=== PATIENT | female | born 1995 | race Caucasian/White ===

== ENCOUNTER 2018-04-06 13:16 | Inpatient (IN) | payer BC ==
[2018-04-06] MEDS ORDERED: NS 0.9% 1000 ML* 1,000 ML IV ONE (14:01)
[2018-04-06 14:18] LABS: ABS Basophils 0 10^3/ul (0-0.2); ABS Eosinophils 0.1 10^3/ul (0-0.6); ABS Lymphocytes 2.5 10^3/ul (1.0-4.8); ABS Monocytes 0.5 10^3/ul (0-0.8); ABS Nucleated RBC 0 10^3/ul; Eosinophil % 1.3 % (0-6); Hematocrit 40 % (35-47); Hemoglobin 13.4 g/dl (12.0-16.0); Lymphocyte % 24.6 % (25-47); Mean Corpuscular HGB Conc 34 g/dl (31-36); Mean Corpuscular Hemoglobin 29 pg (27-31); Mean Corpuscular Volume 84 fL (80-97); Mean Platelet Volume 7.2 fL (7.4-10.4); Nucleated Red Blood Cells % 0; Platelet Count 397 10^3/ul (150-450); Red Cell Distribution Width 14 % (10.5-15); White Blood Count 10.1 10^3/ul (3.5-10.8)
--- NOTE | 2018-04-06 14:24 | ED ---
Throat Pain/Nasal Congestion - HPI Summary HPI Summary: A 22 y/o female accompanied by her father presents to the ED c/o vision changes. In the ED room, the patient has a pulse of 91 BPM, O2 saturation of 98 % and blood pressure of 103/60. As per triage, "Pt c/o not being able to see out of L eye and dizziness. Pt says she got drunk off of whiskey last night and thought she just had a hangover but her vision is getting worse". According to the patient, she cannot see out of her left eye while her right eye is blurry, but still can see out of it. She noted that she cannot focus as it is difficult and moving her eyes hurts. She stated that she can see light and shadows. As per father, the patient drank heavily on Thursday night and slept basically all day Thursday and Thursday. He stated that Thursday she told him her eyes were hurting so he gave her some eye drops, but it did not help, as they "burned" after applying the eye drops. She stated that she does have a headache, dizziness, trouble ambulating, neck pain and vomited this AM. She denies any head injury, fevers or nausea, but did have nausea (on Thursday) previously. The patient has been like this (with her vision) for the past 3 days (has been unable to see). She thought it was just a hangover still so she put off coming to ED. Patient has no other medical issues and is not taking any medications. She is unsure when her last period was. The patient noted that she has been really upset and stressed over her daughter. Her daughter's father keeps her away from her and it has been an issue. The patient has joint custody, however, she lives with father. She noted that she hasn't seen her daughter in 2 years, but sees her every now and again at her father's house but they end of fighting. She noted that her family issues has nothing to do with her symptoms. - History of Current Complaint Chief Complaint: EDDizziness Time Seen by Provider: 04/06/18 13:45 Hx Obtained From: Patient Onset/Duration: Sudden Onset, Lasting Days, Still Present, Worse Since Associated Signs And Symptoms: Positive: Negative Cough: None - Allergies/Home Medications Allergies/Adverse Reactions: Allergies Allergy/AdvReac Type Severity Reaction Status Date / Time varenicline [From Chantix] Allergy Insomnia Verified 04/06/18 14:09 Home Medications: Home Medications NK [No Home Medications Reported] 04/06/18 [History Confirmed 04/06/18] PMH/Surg Hx/FS Hx/Imm Hx Endocrine/Hematology History: Denies: Hx Anticoagulant Therapy, Hx Diabetes, Hx Anemia, Hx Unexplained Bleeding Cardiovascular History: Denies: Hx Aneurysm, Hx Angina, Hx Angioplasty, Hx Auto Implanted Cardiovert Defib, Hx Cardiac Arrest, Hx Cardiomegaly, Hx Congenital Heart Disease, Hx Congestive Heart Failure, Hx Coronary Artery Disease, Hx Deep Vein Thrombosis, Hx Hypercholesterolemia, Hx Hypotension, Hx Hypertension, Hx Pacemaker/ICD, Hx Peripheral Vascular Disease, Hx Rheumatic Fever, Hx Syncope, Hx Valvular Heart Disease, Other Cardiovascular Problems/Disorders History: Denies: Hx Dialysis, Hx Renal Disease Musculoskeletal History: Reports: Hx Back Problems - tailbone injury 2 years ago from jumping from roof Denies: Hx Arthritis, Hx Bursitis, Hx Congenital Bone Abnormalities, Hx Fibromyalgia, Hx Gout, Hx Orthopedic Injury, Hx Osteoporosis, Hx Scoliosis, Hx Tendonitis, Other Musculoskeletal History Sensory History: Denies: Hx Hearing Aid Psychiatric History: Reports: Hx Anxiety, Hx Attention Deficit Hyperactivity Disorder, Hx Eating Disorder - anorexia, Hx Depression, Hx Post Traumatic Stress Disorder, Hx Inpatient Treatment, Hx Bipolar Disorder, Hx Suicide Attempt , Hx of Violent Episodes Against Others, Hx Substance Abuse - marijuana Denies: Hx Panic Disorder, Hx Community Mental Health Tx, Hx Schizophrenia, Other Psychiatric Issues/Disorders - Surgical History Surgery Procedure, Year, and Place: As per father, the patient has had no prior surgeries. Infectious Disease History: No Infectious Disease History: Denies: Hx Clostridium Difficile, Hx Hepatitis, Hx Human Immunodeficiency Virus (HIV), Hx Shingles, Hx Tuberculosis, Traveled Outside the [place] in Last 30 Days - Family History Known Family History: Positive: Other - anxiety - Social History Alcohol Use: Rare Alcohol Amount: "drank half bottle of crown royal last thursday" Substance Use Type: Reports: Marijuana, Other Substance Use Comment - Amount & Last Used: "bath salts" Smoking Status (MU): Light Every Day Tobacco Smoker Review of Systems Positive: Other - POSITIVE: Trouble ambulating. Negative: Fever Positive: Blurred Vision Positive: Vomiting, Nausea - RESOLVED Positive: Other - POSITIVE: Neck pain Neurological: Other - POSITIVE: Dizziness Positive: Headache All Other Systems Reviewed And Are Negative: Yes Physical Exam - Summary Physical Exam Summary: Appearance: Well appearing, no pain distress Skin: warm, dry, reflects adequate perfusion Head/face: normal. Smile symmetry with decreased movement of eyebrow Eyes: Patient at rest has gazed preference to right, pupils are reactive, able to see light and shadows in left eye, has some ability to focus vision in right eye ENT: mucous membranes moist Neck: supple, non-tender Respiratory: CTA, breath sounds present Cardiovascular: RRR, pulses symmetrical Abdomen: non-tender, soft Bowel Sounds: present Musculoskeletal: normal, strength/ROM intact Neuro: normal, sensory motor intact, A&Ox3 Psych: ambivalent, reports depression, her insight is limited which is part of her ambivalence. GCS: 15 Triage Information Reviewed: Yes Vital Signs On Initial Exam: Initial Vitals Temp Pulse Resp BP Pulse Ox 98.0 F 87 12 106/51 100 04/06/18 13:18 04/06/18 13:18 04/06/18 13:18 04/06/18 13:18 04/06/18 13:18 Vital Signs Reviewed: Yes Procedures - Lumbar Puncture LUMBAR PUNCTURE Procedural Sedation: 1% LIDOCAINE Position: Sitting Aseptic Technique: Lidocaine Anesthesia Used: 1.0% Lido Spinal Needle Used: 22 Gauge Lumbar Puncture Note: LUMBAR PUNCTURE AT L3 AND L4. CLEAR FLUID WAS FOUND WITH 1% LIDOCAINE. SITTING POSITION. 5 CC OF CLEAR FLUID WAS TAKEN. LUMBAR PUNCTURE AT 1645. Diagnostics - Vital Signs Vital Signs Temp Pulse Resp BP Pulse Ox 04/06/18 13:18 98.0 F 87 12 106/51 100 - Laboratory Lab Results: Lab Results 04/06/18 Range/Units 14:10 WBC 10.1 (3.5-10.8) 10^3/ul RBC 4.70 (4.00-5.40) 10^6/ul Hgb 13.4 (12.0-16.0) g/dl Hct 40 (35-47) % MCV 84 (80-97) fL MCH 29 (27-31) pg MCHC 34 (31-36) g/dl RDW 14 (10.5-15) % Plt Count 397 (150-450) 10^3/ul MPV 7.2 L (7.4-10.4) fL Neut % (Auto) 69.0 (38-83) % Lymph % (Auto) 24.6 L (25-47) % [place] % (Auto) 4.6 (0-7) % Eos % (Auto) 1.3 (0-6) % Baso % (Auto) 0.5 (0-2) % Absolute Neuts (auto) 7.0 (1.5-7.7) 10^3/ul Absolute Lymphs (auto) 2.5 (1.0-4.8) 10^3/ul Absolute Monos (auto) 0.5 (0-0.8) 10^3/ul Absolute Eos (auto) 0.1 (0-0.6) 10^3/ul Absolute Basos (auto) 0 (0-0.2) 10^3/ul Absolute Nucleated RBC 0 10^3/ul Nucleated RBC % 0 Result Diagrams: 04/06/18 14:10 04/06/18 14:10 Lab Statement: Any lab studies that have been ordered have been reviewed, and results considered in the medical decision making process. - Radiology CXR Radiology Interpretation Completed By: Radiologist - NO ACTIVE CARDIOPULMONARY DISEASE. ED PHYSICIAN REVIEWED THIS RADIOLOGY REPORT. - CT BRAIN CT CT Interpretation Completed By: Radiologist - NO ACUTE INTRACRANIAL PATHOLOGY. ED PHYSICIAN REVIEWED THIS RADIOLOGY REPORT. - EKG 1401 Cardiac Rate: NL - 80 BPM EKG Rhythm: Sinus Rhythm - [address] Segment: Normal Summary of EKG Findings: NORMAL AXIS AND INTERVALS. EENT Course/Dx - Course Course Of Treatment: Patient presents with gaze deviation to the right, left- sided facial numbness, inability to elevate the left eyebrow and some small asymmetry on the left. Her left body also feels tingly. She has normal speech , muscle strength. There is no fever. The globes are soft. There is visual disturbance most in the left eye. Neurology was consultatively and obtained an MRI which was abnormal. A lumbar puncture was performed by mo. Fluid was clear. Analysis is pending at time of disposition. - Differential Diagnoses Differential Diagnoses: Other - Endocarditis with brain abscess, encephalitis, Lyme disease, MS, patent foramen ovale and TIA/CVA, THERMOMETER TESTER infection of other description, conversion - Diagnoses Provider Diagnoses: Visual disturbance, Facial numbness, Drug abuse - Provider Notifications Discussed Care Of Patient With: Mitul Roca Time Discussed With Above Provider: 14:04 Instructed by Provider To: Other - DR. ROCA RECOMMENDS PATIENT FOR ADMISSION TO HOSPITALIST. DR. DEL REAL ACCEPTS PATIENT FOR ADMISSION AT 1455. - Critical Care Time Critical Care Time: 30-74 min - Critical care time is exclusive of separately billable procedures Discharge - Sign-Out/Discharge Documenting (check all that apply): Patient Departure - ADMIT, Sign-Out Patient - NICOLAS Signing out patient TO: Azucena Del Real Receiving patient FROM: Sukhjinder Torrez - Discharge Plan Condition: Stable Disposition: ADMITTED TO [facility] - Billing Disposition and Condition Condition: STABLE Disposition: Admitted to [facility] - Attestation Statements Document Initiated by Candiibe: Yes Documenting Scribe: Srinivasan Angel Provider For Whom Scribe is Documenting (Include Credential): Sukhjinder Torrez MD Scribe Attestation: Srinivasan Hogan, scribed for Sukhjinder Torrez MD on 04/06/18 at 1933. Scribe Documentation Reviewed: Yes Provider Attestation: The documentation as recorded by the candiibSrinivasan rayo accurately reflects the service I personally performed and the decisions made by , Sukhjinder Torrez MD NIH Scale - NIH Scale Level of Consciousness: Alert/Keenly Responsive Ask Patient the Month and His/Her Age: Both Correct Ask Pt to Open/Close Eyes and Court Monitor/Release Non-Paretic Hand: Both Correctly Best Gaze (Only Horizontal Eye Movement): Partial Gaze Palsy Visual Field Testing: Partial Hemianopia Facial Paresis-Pt to Smile & Close Eyes or Grimace Symmetry: Minor Paralysis Motor Function - Right Arm: No Drift-Holds 10 Seconds Motor Function - Left Arm: No Drift-Holds 10 Seconds Motor Function - Right Leg: No Drift-Holds 10 Seconds Motor Function - Left Leg: No Drift-Holds 10 Seconds Limb Ataxia-Must be out of Proportion to Weakness Present: Absent Sensory (Use Pinprick to Test Arms/Legs/Trunk/Face): Normal Best Language (Describe Picture, Name Items): No Aphasia Dysarthria (Read Several Words): Normal Extinction and Inattention: No Abnormality Total Score: 3
[2018-04-06 14:31] LABS: INR 0.94 (0.77-1.02)
[2018-04-06 15:01] LABS: EGFR Non-African American 131.4 (>60)
[2018-04-06 15:15] LABS: Urine Appearance Cloudy; Urine Blood Negative (Negative); Urine Color Yellow; Urine Ketones Negative (Negative); Urine Protein Negative (Negative); Urine Red Blood Cell 1+(3-5/hpf) (Absent); Urine Specific Gravity 1.011 (1.010-1.030); Urine Urobilinogen Negative (Negative); Urine White Blood Cell 3+(>20/hpf) (Absent)
[2018-04-06] MEDS ORDERED: Gadoteridol* (CONTRAST) 279.3 MG/ML 10 ML IV ONE (15:23)
[2018-04-06] MEDS ORDERED: Ondansetron INJ* 2 MG/ML VIAL IV PRN (16:37)
[2018-04-06] MEDS ORDERED: Lidocaine 1% INJ* 10 MG/ML 30 ML SDV ONE (16:50)
[2018-04-06] MEDS ORDERED: Lidocaine 1% INJ* 10 MG/ML 30 ML SDV INJ ONE (17:03)
[2018-04-06 17:12] LABS: Body Fluid Source Cerebral Spinal
[2018-04-06] MEDS ORDERED: diPHENhydraMINE PO* 25 MG PO PRN (18:46)
[2018-04-06] MEDS ORDERED: Vancomycin(*) 0 MG in NS 0.9% 250 ML* 250 ML IVPB SCH (19:00)
[2018-04-06] MEDS ORDERED: Vancomycin(*) 1,000 MG in NS 0.9% 250 ML* 250 ML IVPB ONE (20:15)
[2018-04-06] MEDS ORDERED: cefTRIAXone(*) 2 GM in NS 0.9% 100 ML* 100 ML IVPB SCH (20:15)
--- NOTE | 2018-04-06 20:50 | CONS ---
NEUROLOGY CONSULTATION: DATE OF CONSULT: 04/06/18 LOCATION: She is in the emergency room. REFERRING PHYSICIAN: Dr. Torrez. CHIEF COMPLAINT: Visual problems, abnormal neurological exam. HISTORY OF PRESENT ILLNESS: Bonita Rasheed is a 22-year-old right-handed woman , who I had evaluated previously back in 2015 when she presented with an abnormal MRI scan and possible brain abscess. She had been hospitalized at [facility] in March of 2016. She was there for 9 or 10 days reportedly in status epilepticus, although no records were available. She was said to have a brain abscess on MRI scan. She presented to our emergency room on 04/15/16. She had been on Lexapro previously and was on Keppra, phenytoin, and dexamethasone, as well as Flagyl when she presented to our hospital. She had imaging of the brain, which revealed some enhancement in the left medial temporal lobe and some punctate areas of restricted diffusion in the left temporal and occipital lobe. She was seen by Dr. Chandler in consultation and ultimately it was felt she probably did not have a brain abscess. She was supposed to follow up with me, but did not show up. She was apparently using bath salts and "got drunk" this past Thursday evening 3 evenings prior to admission. Thursday morning, she woke up with difficulty with her vision. She says it has been that way ever since. She did not seek medical attention until a friend apparently who lives with her came and brought her to the emergency room. In the emergency room, she exhibits a right gaze deviation and says that she has difficulty seeing. PAST MEDICAL HISTORY: Notable for depression and substance abuse. She has had suicidal attempts or gestures. MEDICATIONS: Currently, she does not take any medications. She was on anticonvulsives, but has not taken them for quite some time. REVIEW OF SYSTEMS: She admits to a headache. She denies difficulty walking other than as due to difficulty ambulating. She has not noticed any problems swallowing. She has not had any falls that she is aware of. She is not aware of having any seizures. She has not bitten her tongue. She admits to being under a lot of stress lately. She says she does not know who she can trust. PHYSICAL EXAM: She is a thin 22-year-old woman, who is well hydrated. Head and oral cavity are atraumatic. Temperature is 98.0, blood pressure 106/51, heart rate in the 80s and regular. Respiratory rate is 12 and oxygen saturation is 100% on room air. Neck is supple. Heart is in a regular rhythm without murmurs. There are no cervical bruits. Neurological Exam: She has a forced right gaze deviation. She is able to track to the midline and little bit to the left of midline, but then resumes a right gaze deviation. On confrontation testing, she can see in the right hemifield, but not the left. When asked if she can see my fingers, she can see just my hands, but she is able to finger count in the right hemifield. Facial musculature is notable for decreased contraction of left facial musculature including forehead muscles, eye closure, and lower facial muscles. Right facial musculature seems normal. Funduscopic exam is normal bilaterally. Facial sensation is reported as diminished to pin, temperature, and light touch on the left face as well as the left arm and leg. She reports absent vibratory sense in the left hand entirely, but normal in the right. There is splitting of vibration on the forehead, left being perceived as less than the right. She has normal strength in the lower extremities and upper extremities. There is no drift of any limb. She is able to perform [id number] maneuver fairly normally bilaterally. Reflexes are intact and symmetric in the upper and lower extremities. Plantar responses are flexor bilaterally. She is alert and coherent. Speech is clear. Language is fluent. She says that "something is wrong with me." She otherwise has a somewhat flat affect. DIAGNOSTIC STUDIES/LAB DATA: Notable for a CT scan of the brain interpreted as normal. I reviewed the images and I agree. So far, other laboratory studies available include a CBC, which is within normal limits. Chemistry profile is still pending. INR and PTT are within normal limits. Point of care glucose is 104. Urine toxicology screen is pending. IMPRESSION AND PLAN: Impression is that of multifocal neurological deficits. This in the setting of a patient who reportedly had status epilepticus and did have an abnormal MRI scan at least the one was done here in 2016 and reportedly one down in [place], [place] prior to that. I reviewed the images of her old MRI scan and there was some uptake in the left medial temporal lobe and some other areas of restricted diffusion. I would like to get an EEG and also an MRI scan of her brain. I asked her about stress and she said she is under a lot. Asked her if there was anything particularly that went on prior to this episode and she did not offer any specifics. I think we should probably have Psychiatry evaluate her as well, but meanwhile, I will continue to workup for a primary neurological process. I will continue to follow her along. [id number]/[facility] #: [id number] RACHELLE
[2018-04-06] MEDS ORDERED: methylPREDNISolone SOD SUCC* 1,000 MG in NS 0.9% 1000 ML* 1,000 ML IVPB ONE (21:00)
[2018-04-06] MEDS: NS 0.9% 1000 ML* 1,000 ML IV SCH (21:14)
--- NOTE | 2018-04-06 21:26 | HP ---
CC: Dr. Chandler; Dr. Davis * HISTORY AND PHYSICAL: DATE OF ADMISSION: 04/06/18 PRIMARY CARE PROVIDER: None. ATTENDING PHYSICIAN WHILE IN THE HOSPITAL: Azucena Aldana MD* (report dictated by Giancarlo Leija NP). CHIEF COMPLAINT: 1. Vision loss. 2. Dizziness. HISTORY OF PRESENT ILLNESS: Ms. Rasheed is a 22-year-old female patient, who carries a history of depression, anxiety, polysubstance abuse, history of borderline personality, suicidal ideation, history of seizure in 2016 in the setting of possible cerebritis versus brain abscess. She comes into our ER today, says that over the weekend on Thursday and into Thursday, she was using bath salts. She denies them being intravenous used, but she did state that she was using bath salts and she was drinking heavily. She said that she woke up Thursday and she noted that her vision was off. She noted that she could not see with the exception she could only see out of the right upper quadrant from her eye. She denied having any recent fevers, chills. No weight loss. No reports of seizures were reported, although again she was not near family. She was concerned because the left side of her face started getting numb, it was not getting any better despite the fact that she felt like in her words that she was hung over. She denied any neck pain. There have been no reports of confusion. There have been no reports of chest pain or shortness of breath. No abdominal pain. She had 1 episode of vomiting on Thursday morning. She says she did not inject the bath salts, but she did inhale and snort them. She came into the ED today because of the trouble with vision and the left-sided facial droop and because of these findings, we were asked to evaluate for admission. PAST MEDICAL HISTORY: Significant for: 1. Depression. 2. Anxiety. 3. Polysubstance abuse in the past. 4. Borderline personality disorder. 5. History of suicidal ideation. 6. Seizures. 7. Question of brain abscess versus cerebritis in the past. PAST SURGICAL HISTORY: Denied. HOME MEDICATIONS: Denied. ALLERGIES TO MEDICATIONS: Include EFFEXOR. FAMILY HISTORY: She says her mother is healthy, she has RSD. She does not know her father's history. SOCIAL HISTORY: She does not smoke. She does drink alcohol, again occasionally. She said she binge drink over the weekend, but prior to this she has not drink in several years. She does admit to using bath salts over the weekend and does state that she had a history of IV drug use. Surrogate decision maker is her stepfather, Colton. REVIEW OF SYSTEMS: There is no documented fever. She denied having any significant weight change. There is no double vision, but she admits to having loss of vision and blurry vision. She denies having any shortness of breath. There is no abdominal pain. There was no nausea, no vomiting. No dysuria, no frequency. No seizure. There was no loss of consciousness. No pruritus and no skin ulcerations reported. Review of 14 systems completed, all others negative. PHYSICAL EXAMINATION GENERAL: At this time, Ms. Rasheed is a 22-year-old female patient. She is sitting in the ED stretcher. She does not appear to be in any acute distress. She does appear to be well nourished and well developed. VITAL SIGNS: Blood pressure 105/65, pulse 86, respirations 20, O2 sat 100%, temperature 98.0. HEENT: Head: Atraumatic and normocephalic. Eyes: She had a deviated gaze to the left. Pupils were reactive to light. Throat: Oral mucosa appears to be dry. No oropharyngeal erythema. NECK: Supple. LUNGS: Clear to auscultation bilaterally. There were no wheezes, rales, or rhonchi. HEART: Sounds S1, S2. She had a regular rate and rhythm. There were no murmurs, rubs, or gallops heard. ABDOMEN: Soft. It was flat. It was nontender. The bowel sounds were present. EXTREMITIES: Pulses were 2+ throughout. She is moving all 4 extremities with 5 /5 strength. NEUROLOGICAL: She is awake, alert. She is oriented x3. Speech was clear. She does have facial drooping and numbness to the left side. She has loss of vision in the left eye and there is loss of vision in the right eye with the exception of the right upper quadrant she can see. Vision is blurred. She again is unable to do [id number]. She can do [id number], intact bilaterally. She has some ataxia of the left limb. Her ct scan technician were equal and her tongue was midline. No other gross focal deficits. SKIN: Intact. DIAGNOSTIC STUDIES/LAB DATA: WBC 10.1, RBC of 4.70, hemoglobin of 13.4, hematocrit of 40, platelet count of 397. INR of 0.94, PTT of 33.3. Her sodium was 140, potassium 3.9, chloride of 106, bicarb 30, BUN 9, creatinine of 0.57, glucose 98, lactic 0.9, calcium 9.1. Total bili 0.4, AST 11, ALT 12, alk phos 116. Troponin 0. CRP pending. Albumin 3.6. Urine showed 3+ leukocyte esterase, 3+ wbc's, 1+ rbc's. Toxicology was positive for cannabis. Serology was negative for HIV. She had a brain CT obtained today, which showed no acute intracranial pathology. She had a chest x-ray obtained today, which showed no active cardiopulmonary disease. She had an EKG obtained today, which showed normal sinus rhythm, rate of 80 with a normal axis. No ST elevations or T-wave inversions. No previous for comparison. Brain MRI with and without contrast today showed impression: There are enhancing lesions in the left posterior dhaval and right temporal lobe that are new compared to the MRI from the 2015. The areas of abnormality noted on the previous examination are no longer evident. There is no associated restricted diffusion to suggest acute infarct. These are of unclear etiology, but presumably area of similar process to 04/14/16 pathology. The differential includes multifocal neoplasm versus multifocal infection including atypical infection. No findings to suggest abscess. Last time she was here, she had a LESLI which did show a PFO. Her EF was 50% to 55%. No vegetations were seen then. ld medical records were reviewed. ASSESSMENT AND PLAN: Ms. Rasheed is a 22-year-old female patient coming into the ED today with complaints of again loss of vision, deviated gaze, and numbness to her left face and also left leg weakness. On evaluation today, had an MRI and it was noted that she had 2 enhancing brain lesions of unclear etiology. She will be admitted under inpatient status for: 1. Brain lesion. At this point, I did touch base with Dr. Davis and Dr. Chandler. It is not felt to be an abscess. We are holding off on steroids per recommendations of Neurology, holding off on antibiotics until we get cultures. I am sending off an ANCA panel, JANEE, CRP, ESR. HIV again was negative. We will get blood cultures. I have ordered a LESLI as well to look for any vegetations and this could certainly be possibly infection. I am holding on antibiotics unless she spikes a fever, then certainly I will put her on broad- spectrum antibiotics. Dr. Chandler agreed with this approach. We will again panculture her. We are getting a spinal tap, which I have sent off for cell count and Gram stain along with HSV and Cryptococcus. Sed rate and CRP are pending. We will get neuro checks. These lesions could be secondary to seizure , although the dhaval lesion is atypical with this. We will go ahead and get an EEG, place her on seizure precautions. Also, we will get a nursing dysphagia screening. If she passes, she can eat. She will be n.p.o. after midnight for the LESLI and I have ordered PT evaluation. 2. History of anxiety, depression. Currently stable. We will continue with supportive care. If those become issues, we certainly will get Psychiatry involved. 3. Polysubstance abuse. Again, I will place a social work consult as she did use bath salts this weekend, although she adamantly denies IV drug use. 4. Borderline personality disorder. Again, she appears to be stable. She has been lost to follow up. She will need to establish with a PCP. We will monitor. 5. History of seizures. We will place her on seizure precautions. I am holding on giving her antiepileptics. If she does have an active seizure or the EEG is abnormal, certainly we will start her on medications for this, but again I will wait for Neurology input. 6. DVT prophylaxis: I will place her on SCDs. 7. Code status: Full code. TIME SPENT: Time spent on the admission was 60 minutes, greater than half of the time was spent [id number] with the patient obtaining my history and physical, other half of the time was spent going over the plan of care with the patient and implementing plan of care. I did discuss the plan of care with my attending, Dr. Aldana; she is in agreement. GIANCARLO LEIJA, JAEL [id number]/[facility] #: [id number] RACHELLE
[2018-04-06] MEDS ORDERED: Vancomycin per Pharmacy* NOTE FOLLOW UP PRN (21:40)
[2018-04-06] MEDS: Acetaminophen TAB* 325 MG PO PRN (21:48)
--- NOTE | 2018-04-06 23:34 | CONS ---
CONSULTATION REPORT: DATE OF CONSULT: 04/06/18. REQUESTING PHYSICIAN: Dr. Davis. CONSULTING SERVICE: Infectious Disease. REASON FOR CONSULT: Vision loss, brain lesion. Loss of vision acutely in the setting of headache, loss of appetite after smoking bath salts this weekend. MRI of the brain shows enhancing lesions, left dhaval and right temporal lobe new compared to 2016. At that time she had an abnormality in the temporal lobe. She had had no particular follow up for and it has resolved. In the interim, she has been okay. She has some oral ulcerations which she states comes on when she smokes bath salts. No other focal findings. INFECTIOUS DIFFERENTIAL DIAGNOSIS: Toxoplasmosis or cryptococcoma, though both seem less likely without an immunocompromised state and HIV negative a couple of years ago. They are not felt to be typical for brain abscess based on the imaging. She does not have any strong systemic symptoms to suggest a brain abscess either. Fungal organisms may be more indolent, but again would be expected only in immunocompromised state which she does not have. Autoimmune etiology in consideration, she does have oral ulceration but states she has had autoimmune workup pending as well as for multiple sclerosis. RECOMMENDATIONS: We will hold on antibiotics. She has had the lumbar puncture the results of which are pending. We will add toxoplasma serum antibody and the cryptococcus CSF antigen. Routine cultures are included, an HIV test is pending. Given her vision loss and low pretest probability for infectious process, I think there is not a contraindication to corticosteroids if needed. HISTORY OF PRESENT ILLNESS: This is a 22-year-old woman who had the onset of vision loss over the weekend except for when she looks at the corner of her right eye, she can see. She has had weakness and decreased sensation in the left arm and face, along with headache, occasional chills, no fever. Her appetite has been off. She came to the emergency room today, had the MRI with the results as above. She has been seen by Dr. Davis, had the lumbar puncture , results are pending. She has had no fever here. Her CRP is normal. In the interim since her admission here in 2016 with what looks like cerebritis, but then resolved on its own without any particular intervention. She has been intact neurologically expect for numbness and tingling in her finger tips which comes and goes. She does not have any neck pain. She smokes bath salts over the weekend which usually causes oral ulcerations for her and did have a small bump show up on her left wrist, which she cannot see now but does not bother her. She probably had a spider bite. For her workup in 2016, she had an HIV test which was negative. She had transaminitis, hepatitis B and C were negative. She had been admitted to [facility] initially. At that time, had an extensive workup which was unrevealing. PAST MEDICAL HISTORY: Brain lesion in 2016. No surgeries. ALLERGIES: CHANTIX. MEDICATIONS AT HOME: 1. Tylenol. 2. Zofran. SOCIAL HISTORY: She lives with her family. She does on occasion smoke bath salts. No injection drugs. No trips outside the area. Has had cat exposure over the years. FAMILY HISTORY: No autoimmune disorders. No recurrent infections. REVIEW OF SYSTEMS: All negative except as noted above to a 14-point review of systems, expect for noted in the history of present illness. PHYSICAL EXAM: Vital Signs: Temperature 37, heart rate 80, respiratory rate 20 , blood pressure 105/65, oxygen saturation 100% on room air. In general, she is awake, not in distress. Neurologic: She is oriented x3. Follows all commands. Answers all questions. Cannot see from medial right eye. Decreased sensation to light touch in the left upper extremity. HEENT: There is no conjunctival hemorrhage. Oropharynx without lesions. There is no thrush, or oral hairy leukoplakia. Neck is supple without mass. Lymph Nodes: There is no cervical, supraclavicular, inguinal, axillary, or epitrochlear lymphadenopathy. Heart is regular rate and rhythm without murmurs, rubs, or gallops. Lungs are clear to auscultation bilaterally. Abdomen: Soft, nontender, nondistended. There are bowel sounds present. Skin: There is no rash or splinter hemorrhage. Musculoskeletal: There is no spine tenderness to palpation. LABORATORY DATA: White blood cell count 10, hemoglobin 13, platelets 397. Creatinine 0.5. CRP 3. HCG 0. Urinalysis, leukocyte esterase. Toxicology screen shows cannabinoids. HIV antibodies negative. Please see impressions and recommendations as outlined above, which I have discussed with Giancarlo Leija NP and Dr. Davis. [id number]/[facility] #: [id number] [facility] HOSPITALDemarcus
--- NOTE | 2018-04-06 23:42 | CONS ---
NEUROLOGY CONSULTATION: LOCATION: She is in room 433. CHIEF COMPLAINT: Visual changes. ADDENDUM: Bonita is now on the regular medical floor. I have reviewed a number of laboratory studies that she has had. Her spinal fluid is notable for mildly elevated protein at 50 with a normal glucose. She has 98 white blood cells per cubic millimeter with differential being 32% neutrophils, 48% lymphocytes, 20% monocytes. Other laboratory studies which have since returned include a normal CRP at 3.79, sedimentation rate is still pending. Bonita remains afebrile. Dr. Chandler has seen her in consultation. I suspect Bonita has multiple sclerosis. Periventricular lesions, particularly around the fourth ventricle, are highly correlated with MS. She has more white blood cells in her spinal fluid than I would typically expect, and she has a fairly intense inflammatory response particularly in the periventricular region that might account for it. I think it is reasonable to treat her with steroids as well as antibiotic coverage. I have discussed this with Giancarlo Leija. Recommend starting Solu-Medrol at 1000 mg given over an hour tonight. I discussed my concerns with Bonita. I explained the steroids are potent anti-inflammatory medicines but can cause anxiety and insomnia. Recommended Giancarlo Leija that a sleeping medicine be made available. I will reevaluate her tomorrow and hopefully some of the other spinal fluid studies and blood studies will be back. If she shows improvement and there is no other evidence to suggest infection, then we will continue intravenous steroids for at least a few days. I should note that she was treated with dexamethasone with her previous attack in 2013 and she did get better and her lesions resolved. [id number]/[facility] #: [id number] RACHELLE
[2018-04-07] MEDS ORDERED: Nicotine GUM* 2 MG PO PRN (01:00)
[2018-04-07] MEDS: Nicotine PATCH 14 MG/24 HR* PATCH TRANSDERM SCH ×2 (01:11→12:35)
[2018-04-07] MEDS ORDERED: Vancomycin(*) 1,000 MG in NS 0.9% 250 ML* 250 ML IVPB SCH (03:00)
--- NOTE | 2018-04-07 04:36 | EEG ---
ELECTROENCEPHALOGRAPHY: DATE OF STUDY: 04/06/18 - ROOM #433 REFERRING PHYSICIAN: Dr. Davis. She is in the emergency room, to be admitted. CLINICAL PROBLEM: Double vision and gaze deviation. History 3 years ago of status epilepticus. The patient is currently not on any medications. REPORT: This 16-channel EEG is remarkable for background rhythms consisting of a posterior alpha rhythm at about 10 to 10.5 cycles per second, which is symmetric. Low voltage beta rhythms are seen diffusely otherwise. Activation procedures are not attempted. The patient does not appear to drowse or sleep during the recording. There are no clinical events. There are no focal, lateralized, or epileptiform abnormalities. CLINICAL IMPRESSION: Normal awake EEG. [id number]/[facility] #: [id number] [facility]
[2018-04-07] MEDS: NS 0.9% 1000 ML* 1,000 ML IV SCH (05:43)
[2018-04-07 05:46] LABS: ABS Basophils 0 10^3/ul (0-0.2); ABS Eosinophils 0 10^3/ul (0-0.6); ABS Lymphocytes 0.6 10^3/ul (1.0-4.8); ABS Monocytes 0 10^3/ul (0-0.8); ABS Nucleated RBC 0 10^3/ul; Eosinophil % 0 % (0-6); Hematocrit 37 % (35-47); Hemoglobin 12.4 g/dl (12.0-16.0); Mean Corpuscular HGB Conc 33 g/dl (31-36); Mean Corpuscular Hemoglobin 28 pg (27-31); Mean Corpuscular Volume 84 fL (80-97); Mean Platelet Volume 7.2 fL (7.4-10.4); Nucleated Red Blood Cells % 0; Platelet Count 345 10^3/ul (150-450); Red Blood Count 4.44 10^6/ul (4.00-5.40); Red Cell Distribution Width 15 % (10.5-15); White Blood Count 10.6 10^3/ul (3.5-10.8)
[2018-04-07 05:52] LABS: INR 0.99 (0.77-1.02)
[2018-04-07] MEDS ORDERED: methylPREDNISolone SOD SUCC* 1000 MG ML VIAL IVPB SCH (09:00)
[2018-04-07] MEDS ORDERED: methylPREDNISolone SOD SUCC* 1,000 MG in NS 0.9% 250 ML* 250 ML IVPB SCH (10:00)
[2018-04-07] MEDS ORDERED: Gadoteridol* (CONTRAST) 279.3 MG/ML 10 ML IV ONE (10:49)
[2018-04-07] MEDS: Acetaminophen TAB* 325 MG PO PRN (12:23)
--- NOTE | 2018-04-07 13:10 | TRS ---
CC: Rodrigue Harden NP* DATE OF ADMISSION: 04/06/2018. DATE OF TRANSFER TO [facility]: 04/07/2018. PRIMARY CARE PROVIDER: Rodrigue Harden NP. 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 SECONDARY DIAGNOSES: 1. Polysubstance abuse. 2. Depression/anxiety. 3. Borderline personality disorder. 4. Seizures. DISCHARGE MEDICATIONS: 1. Normal saline 125 ml/hour. 2. Tylenol 650 mg p.o. q.4 hours prn pain. 3. Benadryl 25 mg p.o. at bedtime prn insomnia. 4. Methylprednisolone 1 gm IV daily. 5. Nicotine patch 14 mg topically daily. 6. Nicotine gum 2 mg p.o. q.3 hours prn craving. 7. Zofran 4 mg IV q.6 hours prn nausea. HOSPITAL COURSE: Ms. Rasheed is a 22-year-old female who presented to the emergency room on 04/06/2018 with complaints of vision changes. Of note, in 2015 the patient had an episode of an abnormal MRI scan with concern for possible brain abscess. The patient had been hospitalized in March 2016 in reportedly status epilepticus, though records were not available to confirm this. She was seen by Dr. Davis as well as Dr. Chandler at that time and it was felt she ultimately did not have a brain abscess. She was supposed to follow-up with Dr. Davis; however, she did not show up. The patient reportedly was using bath salts and became intoxicated on Thursday evening, which was three evenings prior to admission. On Thursday morning, she woke up with difficulty with her vision. She ultimately presented to the emergency room on 04/06/2018. At the time of her presentation to the emergency room, Dr. Davis was consulted. He noted a right gaze deviation as well as a left hemianopsia. She was also found to have a left facial droop. Her funduscopic exam felt to be normal bilaterally. Facial sensation was diminished to pin, temperature, and light touch on the left face, as well as the left arm and leg. She reported absent vibratory sense in the left hand entirely, but normal in the right. The forehead had perceived decreased vibratory sense on the left compared to the right. Dr. Davis at that time recommended EEG and MRI. The MRI of the brain was performed and revealed enhancing lesions of the left posterior dhaval and right temporal lobe that are new compared to the MRI from . The areas of abnormality on the prior exam are no longer present. The etiology of these lesions is felt to be unclear, but the differential is felt to include multifocal neoplasm versus multifocal infection, including atypical infection. There were no findings to suggest abscess. Lumbar puncture was then performed. The lumbar puncture revealed clear fluid with 98 white blood cells, 6 RBC, and a predominance of lymphocytes. CSF glucose was normal at 49 and CSF total protein was slightly elevated at 50. The patient was also seen in consultation by Dr. Chandler who recommended holding off on antibiotic therapy for the time being as there is no clear evidence to support infection as the cause of her symptoms. He did state that if steroids were felt to be warranted, there would be no contraindication to the patient receiving those. Dr. Davis again evaluated the patient and thought that multiple sclerosis would be a possibility; however, after further research, he questioned whether or not the patient may have neuromyelitis optica. This is based on the patient' s symptoms predominantly involving the area around the fourth ventricle leading to visual disturbances. Treatment for neuromyelitis optica is IV steroids and possibly plasma exchange. We do not have plasma exchange capabilities at [facility] and therefore Dr. Davis spoke with Dr. Do at [facility] who kindly accepted the patient in transfer. The patient will be transferred to [facility] today, 04/07/2018. On the day of transfer, the patient is awake, alert and oriented. She has a forced right gaze deviation. She is able to get the eyes to almost midline. She has a left hemianopsia. She also has a noticeable left facial droop. The patient has a normal cardiac exam with normal S1, S2 and a regular rate and rhythm. Her lungs are clear bilaterally. Her abdomen is soft, nontender, nondistended. The patient was able to move all four extremities symmetrically. FOLLOW-UP CONCERNS: The patient is being transferred to [facility] today, 04/07/2018. ACTIVITY LEVEL: As tolerated. DIET: Regular. CONDITION ON DISCHARGE: Guarded. Thirty-five minutes were spent transferring this patient. [id number]/[facility] #: [id number] [facility]
[2018-04-07] MEDS ORDERED: Vancomycin Trough Check NOTE FOLLOW UP ONE (15:00)
[2018-04-07 15:49] VITALS: BP 112/71
--- NOTE | 2018-04-07 17:56 | PN ---
NEUROLOGY FOLLOWUP NOTE: DATE OF FOLLOWUP: 04/07/18 HOSPITALIST: Dr. Hernandez. LOCATION: She is an inpatient in [facility]. CHIEF COMPLAINT: Visual disturbances, numbness. INTERVAL HISTORY: Since yesterday, Bonita feels her vision is improved. She can see more detail. She can see better out of the right eye than the left. She still feels like her entire left side is numb. She notes the left side of her face remains weak. MEDICATIONS: Medications are reviewed and she is on: 1. Solu-Medrol 1000 mg, which she received last night. 2. Vancomycin. 3. Ceftriaxone. 4. She has Zofran 4 mg IV q. 6 hours as needed for nausea. 5. Diphenhydramine 25 mg at bedtime to help with sleep. 6. She is on nicotine patch. PHYSICAL EXAMINATION: On exam, she is well hydrated. Temperature 97.9, blood pressure 112/58, heart rate in the 70s and regular. Respiratory rate is 16 and oxygen saturation is 100% on room air. On neurologic exam, pupils are about 3.5 mm and react weakly to light to about 3 mm. I cannot see a clear afferent pupillary defect. She continues with a right gaze deviation. She can bring her eyes to about the midline. She continues with a peripheral pattern left facial weakness. Speech has a mild buccal dysarthria. She has normal strength in her limbs. She has diminished sensation in the left face and the right arm and leg. She is completely alert and coherent. Her memory is intact and language is fluent. LABORATORY DATA: New laboratory data includes a HIV antibody study which is negative. Toxicology screen positive for cannabinoids. CSF Gram Stain is unremarkable. 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 She has an antiinflammatory spinal fluid over what would be expected for multiple sclerosis , a relapsing, probable demyelinating disease and significant visual deficits with brainstem syndrome. Her vision is worse in her left eye and there is pain with movement suggesting optic neuritis. We will continue with IV Solu-Medrol 1000 mg per day. I wrote orders for an MRI of the cervical spine and anti-aquaporin 4 antibodies. We will obtain visually evoked potentials. I think she needs to be at a center where plasma exchange is available, and so I will make a call to the [facility] and discuss the case with the neuroimmunology group there. If she does not show significant improvement on steroids, then I may institute intravenous immunoglobulin, but preferably I will refer her to a center where plasma exchange is available. I have discussed my impression with Dr. Hernandez, who is her hospitalist. [id number]/[facility] #: [id number] RACHELLE
[2018-04-07] MEDS ORDERED: Nicotine Patch Removal NOTE PATCH OFF SCH (21:00)
--- NOTE | 2018-04-09 21:23 | EEG ---
VISUALLY EVOKED POTENTIAL STUDY: DATE OF PROCEDURE: 04/07/18 REFERRING PHYSICIAN: Dr. Davis. LOCATION: Inpatient. CLINICAL HISTORY: Visual loss for about 48 hours prior to this study. The patient has multifocal ab normalities on MR imaging. Rule out optic neuropathy. REPORT: Visually evoked potential responses were obtained with monocular stimulation. A mid frontal reference electrode was utilized. Waveforms on the left were inconsistent and there was a possible P100 but from my perspective it is unreliable, therefore will not be further commented on. There is a reliable P100 on the right. Tabular results: P100 on the right at left occipital to mid frontal reference is 98.4; on the right, mid occipital to mid frontal is 98.0; on the right, right occipital to mid frontal is 97.7. INTERPRETATION: Normal visually evoked potential for the right eye stimulation, no reliable response to stimulation on the left. This would imply optic neuropathy on the left or extremely poor visual acuity. [id number]/[facility] #: [id number]
== END 2018-04-07 17:10 | disposition short-term general hospital (02) | DRG 43 ==
LOC: ED 13:16 → MEDTELE 16:26
PROVIDERS: ADMIT Internal Medicine; ATTEND Hospitalist
PROC: 009U3ZX Drainage of Spinal Canal, Percutaneous Approach, Diagnostic (ICD-10-PCS; principal; 2018-04-06)
PROC: 4A10X4Z Monitoring of Central Nervous Electrical Activity, External Approach (ICD-10-PCS; 2018-04-06)
DX: G36.0 Neuromyelitis optica [Devic] (principal); F50.00 Anorexia nervosa, unspecified; F41.9 Anxiety disorder, unspecified; F90.9 Attention-deficit hyperactivity disorder, unspecified type; F32.9 Major depressive disorder, single episode, unspecified; F43.10 Post-traumatic stress disorder, unspecified; F17.200 Nicotine dependence, unspecified, uncomplicated; R29.703 NIHSS score 3; R29.810 Facial weakness; F60.3 Borderline personality disorder; R56.9 Unspecified convulsions; F19.10 Other psychoactive substance abuse, uncomplicated; H53.462 Homonymous bilateral field defects, left side; Z88.8 Allergy status to other drugs, medicaments and biological substances; Z72.89 Other problems related to lifestyle; Z81.8 Family history of other mental and behavioral disorders; Z91.5 Personal history of self-harm
CPT/HCPCS: 36415; 70450; 70553; 71045; 72156; 80048; 80053; 80061; 80202; 80307; 80320; 81003; 81015; 82040; 82042; 82784; 82945; 83516; 83605; 83916; 84157; 84484; 84702; 85025; 85610; 85652; 85730; 86038; 86140; 86255; 86480; 86703; 86777; 86778; 86788; 86789; 87040; 87070; 87077; 87086; 87186; 87205; 87529; 87899; 89051; 93005; 95816; 95930; 99284; A9270-GY; A9579; G0480; J0696; J2930; J3370

== ENCOUNTER 2018-10-20 11:20 | Emergency (ER) | payer BC ==
--- NOTE | 2018-10-20 11:49 | ED ---
Complex/Multi-Sys Presentation - HPI Summary HPI Summary: Patient is a 23 y/o F presenting to ED with complaints of N/V since 0300 this morning. Patient has Hx of MS and reports headache and neck pain that she describes as chronic. She also endorses fever, chills, and abdominal pain onsetting this morning. Hx of seizures and brain lesion are also endorsed. Patient states that she is followed by [facility] neurologist, Josh Hopkins, . Patient states that she is scheduled for Rituximab infusion on 10/22. She states that she had been previously scheduled for a Rituximab infusion , but states that she did not receive it as she had an infection at her left chest area. On triage, pain is rated 6/10, nothing is noted to aggravate/ alleviate Sx. Home medications and allergies are reviewed. - History Of Current Complaint Chief Complaint: EDNauseaVomitDiarrh Time Seen by Provider: 10/20/18 11:32 Hx Obtained From: Patient Onset/Duration: Lasting Hours - onset 10/20/18 this morning 299, Still Present Timing: Constant, Hours - onset 10/20/18 this morning 299 Severity Currently: Moderate Location: Pain At: - head, neck, abdomen Aggravating Factor(s): nothing Alleviating Factor(s): nothing Associated Signs And Symptoms: Positive: Headache, Nausea, Vomiting, Abdominal Pain, Fever, Other - POSITIVE - NECK PAIN, CHILLS - Allergies/Home Medications Allergies/Adverse Reactions: Allergies Allergy/AdvReac Type Severity Reaction Status Date / Time varenicline [From Chantix] Allergy Insomnia Verified 08/06/18 14:45 PMH/Surg Hx/FS Hx/Imm Hx Endocrine/Hematology History: Denies: Hx Anticoagulant Therapy, Hx Diabetes, Hx Anemia, Hx Unexplained Bleeding Cardiovascular History: Denies: Hx Aneurysm, Hx Angina, Hx Angioplasty, Hx Auto Implanted Cardiovert Defib, Hx Cardiac Arrest, Hx Cardiomegaly, Hx Congenital Heart Disease, Hx Congestive Heart Failure, Hx Coronary Artery Disease, Hx Deep Vein Thrombosis, Hx Hypercholesterolemia, Hx Hypotension, Hx Hypertension, Hx Pacemaker/ICD, Hx Peripheral Vascular Disease, Hx Rheumatic Fever, Hx Syncope, Hx Valvular Heart Disease, Other Cardiovascular Problems/Disorders History: Denies: Hx Dialysis, Hx Renal Disease Musculoskeletal History: Reports: Hx Back Problems - tailbone injury 2 years ago from jumping from roof Denies: Hx Arthritis, Hx Bursitis, Hx Congenital Bone Abnormalities, Hx Fibromyalgia, Hx Gout, Hx Orthopedic Injury, Hx Osteoporosis, Hx Scoliosis, Hx Tendonitis, Other Musculoskeletal History Sensory History: Reports: Hx Vision Problem Denies: Hx Contacts or Glasses, Hx Hearing Aid Opthamlomology History: Reports: Hx Vision Problem Denies: Hx Contacts or Glasses Neurological History: Reports: Hx Seizures, Other Neuro Impairments/Disorders - lesions Psychiatric History: Reports: Hx Anxiety, Hx Attention Deficit Hyperactivity Disorder, Hx Eating Disorder - anorexia, Hx Depression, Hx Post Traumatic Stress Disorder, Hx Inpatient Treatment - At [facility] and [facility], Hx Bipolar Disorder, Hx Suicide Attempt, Hx of Violent Episodes Against Others, Hx Substance Abuse, Other Psychiatric Issues/Disorders - Borderline Personality Denies: Hx Panic Disorder, Hx Community Mental Health Tx, Hx Schizophrenia - Surgical History Surgery Procedure, Year, and Place: DENIES Infectious Disease History: No Infectious Disease History: Denies: Hx Clostridium Difficile, Hx Hepatitis, Hx Human Immunodeficiency Virus (HIV), Hx Shingles, Hx Tuberculosis, Traveled Outside the [place] in Last 30 Days - Family History Known Family History: Positive: Other - anxiety - Social History Alcohol Use: Rare Alcohol Amount: "drank half bottle of crown royal last thursday" Substance Use Type: Reports: Marijuana Substance Use Comment - Amount & Last Used: "bath salts" Smoking Status (MU): Light Every Day Tobacco Smoker Type: Cigarettes Amount Used/How Often: 1/2 pack a day Review of Systems Positive: Fever, Chills Positive: Abdominal Pain, Vomiting, Nausea Musculoskeletal: Other - POSITIVE - NECK PAIN Positive: Headache All Other Systems Reviewed And Are Negative: Yes Physical Exam - Summary Physical Exam Summary: GENERAL: Patient is a well-developed and nourished female who is lying comfortable in the stretcher. Patient is not in any acute respiratory distress. HEAD AND FACE: Normocephalic EYES: PERRLA, EOMI x 2. EARS: Hearing grossly intact. MOUTH: Oropharynx within normal limits. NECK: Supple, trachea is midline, no adenopathy, no JVD, no carotid bruit. CHEST: Symmetric, no tenderness at palpation LUNGS: Clear to auscultation bilaterally. No wheezing or crackles. CVS: Regular rate and rhythm, S1 and S2 present, no murmurs or gallops appreciated. ABDOMEN: Soft, non-tender. Bowel sounds are normal. No abnormal abdominal pulsations. EXTREMITIES: Full ROM in all major joints, no edema, no cyanosis or clubbing. NEURO: Alert and oriented x 3. No acute neurological deficits. Speech is normal and follows commands. No meningeal signs. SKIN: Dry and warm Triage Information Reviewed: Yes Vital Signs On Initial Exam: Initial Vitals Temp Pulse Resp BP Pulse Ox 97.8 F 86 18 117/77 96 10/20/18 11:24 10/20/18 11:24 10/20/18 11:24 10/20/18 11:24 10/20/18 11:24 Vital Signs Reviewed: Yes Diagnostics - Vital Signs Vital Signs Temp Pulse Resp BP Pulse Ox 10/20/18 11:24 97.8 F 86 18 117/77 96 - Laboratory Result Diagrams: 10/20/18 12:07 10/20/18 12:07 Lab Statement: Any lab studies that have been ordered have been reviewed, and results considered in the medical decision making process. - Radiology CERVICAL SPINE MRI Radiology Interpretation Completed By: Radiologist Summary of Radiographic Findings: CERVICAL SPINE MRI IMPRESSION: #. No evidence for demyelinating lesions of the cervical spinal cord. #. No etiology for neck pain evident. THIS REPORT WAS REVIEWED BY DR. LEIJA BRAIN MRI Radiology Interpretation Completed By: Radiologist Summary of Radiographic Findings: BRAIN MRI IMPRESSION: #. Minimal T2 FLAIR signal abnormality at the LEFT frontal lobe periventricular white. matter and genu of the corpus callosum without change or associated enhancement to. indicate an acute demyelination. No new cerebral lesions evident. THIS REPORT WAS REVIEWED BY DR. LEIJA. Re-Evaluation - Re-Evaluation First Eval Re-Evaluation Time: 18:19 Change: Improved Comment: Patient reports improvment in Sx. Results of labs and tests were discussed, patient is agreeable with discharge to home. Complex Multi-Symp Course/Dx Course Of Treatment: Patient is a 23 y/o F presenting to ED with complaints of N /V since 0300 this morning. Patient has Hx of MS and reports headache and neck pain that she describes as chronic. She also endorses fever, chills, and abdominal pain onsetting this morning. Hx of seizures and brain lesion are also endorsed. Patient states that she is followed by [facility] neurologist, Josh Hopkins, . Patient states that she is scheduled for Rituximab infusion on 10/22/18. She states that she had been previously scheduled for a Rituximab infusion, but states that she did not receive it as she had an infection at her left chest area. No meningeal signs on physical exam. Labs showed RBC 5.02, absolute neuts 7.9, INR 1.14, APTT 39.4, chloride 100, glucose 105, first lactic acid 0.5, second was 0.4. Total bilirubin 1.10, AST 11, alk phos 107, trop 0. Beta HCG < 0.60. UA showed 1+ ketones, 2+ blood, present squamous epith cells, trace WBC. 1350 - Patient's case was discussed with Dr. Ashley, Dr. Ashley asks for brain and cervical spine MRI of patient. During ED course, patient received fluids, Zofran 4 mg IV x2, morphine 4 mg IV. CERVICAL SPINE MRI IMPRESSION: #. No evidence for demyelinating lesions of the cervical spinal cord. #. No etiology for neck pain evident. BRAIN MRI IMPRESSION: #. Minimal T2 FLAIR signal abnormality at the LEFT frontal lobe periventricular white. matter and genu of the corpus callosum without change or associated enhancement to. indicate an acute demyelination. No new cerebral lesions evident. 1820 - Results of MRI were discussed with Dr. Ashley, Dr. Ashley states that patient can be discharged to home. Discussed results with patient, and the patient reports feeling better. The patient is hemodynamically stable and safe for discharge. Strict return precautions given and the patient will otherwise follow up with PCP and neurologist. - Diagnoses Provider Diagnoses: Headache, Nausea and vomiting - Physician Notifications Discussed Care Of Patient With: Rock Ashley Time Discussed With Above Provider: 13:05 Instructed by Provider To: Other - 1350 - Patient's case was discussed with Dr. Ashley, Dr. Ashley asks for brain and cervical spine MRI of patient. 182 - Results of MRI were discussed with Dr. Ashley, Dr. Ashley states that patient can be discharged to home. Discharge - Sign-Out/Discharge Documenting (check all that apply): Patient Departure - discharge Patient Received Moderate/Deep Sedation with Procedure: No - Discharge Plan Condition: Stable Disposition: HOME Prescriptions: Ondansetron ODT TAB* [Zofran 4 MG Odt TAB*] 4 mg PO Q6H PRN #12 tab.odt PRN Reason: Nausea Patient Education Materials: Acute Nausea and Vomiting (ED), General Headache ( ED) Referrals: Rodrigue Harden NP [Primary Care Provider] - 3 Days Rock Ashley MD [Medical Doctor] - 3 Days Additional Instructions: RETURN TO THE EMERGENCY DEPARTMENT FOR ANY CHANGING OR WORSENING SYMPTOMS. FOLLOW UP WITH YOUR PRIMARY CARE PHYSICIAN AND NEUROLOGIST WITHIN THREE DAYS. - Billing Disposition and Condition Condition: STABLE Disposition: Home - Attestation Statements Document Initiated by Scribe: Yes Documenting Scribe: ISAAC MIRAMONTES Provider For Whom [place] is Documenting (Include Credential): JONNY LEIJA MD Scribe Attestation: ISAAC Hogan, scribed for JONNY LEIJA MD on 10/20/18 at 1955. Scribe Documentation Reviewed: Yes Provider Attestation: The documentation as recorded by the ISAAC hood accurately reflects the service I personally performed and the decisions made by me, JONNY LEIJA MD Status of Scribe Document: Viewed
[2018-10-20] MEDS ORDERED: NS 0.9% 1000 ML** 1,000 ML IV ONE (11:51)
[2018-10-20] MEDS ORDERED: Ondansetron INJ* 2 MG/ML VIAL IV ONE ×2 (11:51→15:50)
[2018-10-20 12:15] LABS: ABS Monocytes 0.2 10^3/ul (0-0.8); ABS Neutrophils 7.9 10^3/ul (1.5-7.7); Hematocrit 42 % (35-47); Hemoglobin 13.9 g/dL (12.0-16.0); Lymphocyte % 10.8 %; Mean Corpuscular HGB Conc 33 g/dL (31-36); Mean Corpuscular Hemoglobin 28 pg (27-31); Mean Corpuscular Volume 83 fL (80-97); Mean Platelet Volume 7.4 fL (7.4-10.4); Platelet Count 397 10^3/uL (150-450); Red Blood Count 5.02 10^6 /uL (3.70-4.87); Red Cell Distribution Width 15 % (10.5-15); White Blood Count 9.1 10^3/uL (3.5-10.8)
[2018-10-20 12:34] LABS: ALT 11 U/L (7-52); AST 11 U/L (13-39); Activated Partial Thrombo Time 39.4 seconds (26.0-38.0); Albumin 4.7 g/dL (3.2-5.2); Albumin/Globulin Ratio 1.5 (1-3); Alkaline Phosphatase 107 U/L (34-104); Anion Gap 9 mmol/L (2-11); BUN/Creatinine Ratio 15.7 (8-20); Blood Urea Nitrogen 11 mg/dL (6-24); C Reactive Protein 3.44 mg/L (<8.01); CO2 Carbon Dioxide 27 mmol/L (22-32); Chloride 100 mmol/L (101-111); EGFR African American 124.4 (>60); EGFR Non-African American 102.8 (>60); Globulin 3.1 g/dL (2-4); Glucose 105 mg/dL (70-100); INR 1.14 (0.82-1.09); Potassium 3.6 mmol/L (3.5-5.0); Sodium 136 mmol/L (135-145); Total Protein 7.8 g/dL (6.4-8.9)
[2018-10-20 12:39] LABS: HCG Pregnancy < 0.60 mIU/mL
[2018-10-20 13:40] LABS: Urine Appearance Cloudy; Urine Bacteria Absent (Absent); Urine Bilirubin Negative (Negative); Urine Blood 2+ (Negative); Urine Color Straw; Urine Glucose Negative (Negative); Urine Ketones 1+ (Negative); Urine Nitrite Negative (Negative); Urine Protein Negative (Negative); Urine Red Blood Cell Absent (Absent); Urine Specific Gravity 1.006 (1.010-1.030); Urine Squamous Epithelial Cell Present (Absent); Urine Urobilinogen Negative (Negative); Urine White Blood Cell Trace(0-5/hpf) (Absent)
[2018-10-20] MEDS ORDERED: Morphine 4 MG/ML VIAL (1 ml) 4 MG/ML VIAL IV ONE (15:51)
[2018-10-20] MEDS ORDERED: Gadoteridol* (CONTRAST) 279.3 MG/ML 10 ML IV ONE (16:21)
[2018-10-20 18:58] VITALS: BP 118/64
== END 2018-10-20 18:57 | disposition home or self-care (01) ==
LOC: ED 11:20
DX: R11.2 Nausea with vomiting, unspecified (principal); R51 Headache; F17.210 Nicotine dependence, cigarettes, uncomplicated; G35 Multiple sclerosis
CPT/HCPCS: 36415; 70553; 72156; 80053; 81003; 81015; 83605; 84484; 84702; 85025; 85610; 85730; 86140; 87040; 87086; 96361; 96374; 96375; 96376; 99283; A9579; J2270; J2405

== ENCOUNTER 2018-11-17 13:11 | Emergency (ER) | payer BC ==
[2018-11-17] MEDS ORDERED: Ondansetron INJ* 2 MG/ML VIAL IV ONE (15:52)
[2018-11-17] MEDS ORDERED: NS 0.9% 1000 ML** 1,000 ML IV ONE (15:52)
[2018-11-17] MEDS ORDERED: Ketorolac INJ* 30 MG/ML 1 ML VIAL IV PUSH ONE (15:58)
--- NOTE | 2018-11-17 16:04 | ED ---
Complex/Multi-Sys Presentation - HPI Summary HPI Summary: Patient is a 23-year-old female who presents emergency department for possible reaction to Rituximab infusion received 11/08/18. Patient has history of an abscess. Patient states since her first infusion. She follows with neurologist in [place]. Patient states second day after infusion she started to have myalgias, nausea and a burning sensation to her skin. No associated symptoms of rash, facial swelling or shortness of breath. Patient also notes ongoing neck and head pain. Patient was seen in the ER about one month ago for similar symptoms. Symptoms are moderate in severity. No current modifying factors. - History Of Current Complaint Chief Complaint: EDGeneral Time Seen by Provider: 11/17/18 15:40 Hx Obtained From: Patient - Allergies/Home Medications Allergies/Adverse Reactions: Allergies Allergy/AdvReac Type Severity Reaction Status Date / Time varenicline [From Chantix] Allergy Insomnia Verified 11/17/18 13:16 PMH/Surg Hx/FS Hx/Imm Hx Previously Healthy: Yes Endocrine/Hematology History: Denies: Hx Anticoagulant Therapy, Hx Diabetes, Hx Anemia, Hx Unexplained Bleeding Cardiovascular History: Denies: Hx Aneurysm, Hx Angina, Hx Angioplasty, Hx Auto Implanted Cardiovert Defib, Hx Cardiac Arrest, Hx Cardiomegaly, Hx Congenital Heart Disease, Hx Congestive Heart Failure, Hx Coronary Artery Disease, Hx Deep Vein Thrombosis, Hx Hypercholesterolemia, Hx Hypotension, Hx Hypertension, Hx Pacemaker/ICD, Hx Peripheral Vascular Disease, Hx Rheumatic Fever, Hx Syncope, Hx Valvular Heart Disease, Other Cardiovascular Problems/Disorders History: Denies: Hx Dialysis, Hx Renal Disease Musculoskeletal History: Reports: Hx Back Problems - tailbone injury 2 years ago from jumping from roof Denies: Hx Arthritis, Hx Bursitis, Hx Congenital Bone Abnormalities, Hx Fibromyalgia, Hx Gout, Hx Orthopedic Injury, Hx Osteoporosis, Hx Scoliosis, Hx Tendonitis, Other Musculoskeletal History Sensory History: Reports: Hx Vision Problem Denies: Hx Contacts or Glasses, Hx Hearing Aid Opthamlomology History: Reports: Hx Vision Problem Denies: Hx Contacts or Glasses Neurological History: Reports: Hx Seizures, Other Neuro Impairments/Disorders - lesions Psychiatric History: Reports: Hx Anxiety, Hx Attention Deficit Hyperactivity Disorder, Hx Eating Disorder - anorexia, Hx Depression, Hx Post Traumatic Stress Disorder, Hx Inpatient Treatment - At [facility] and [facility] Inpatient, Hx Bipolar Disorder, Hx Suicide Attempt, Hx of Violent Episodes Against Others, Hx Substance Abuse, Other Psychiatric Issues/Disorders - Borderline Personality Denies: Hx Panic Disorder, Hx Community Mental Health Tx, Hx Schizophrenia - Surgical History Surgery Procedure, Year, and Place: DENIES Infectious Disease History: No Infectious Disease History: Denies: Hx Clostridium Difficile, Hx Hepatitis, Hx Human Immunodeficiency Virus (HIV), Hx Shingles, Hx Tuberculosis, Traveled Outside the [place] in Last 30 Days - Family History Known Family History: Positive: Other - anxiety, Non-Contributory - Social History Occupation: Unemployed Lives: With Family Alcohol Use: Rare Alcohol Amount: "drank half bottle of crown royal last thursday" Substance Use Type: Reports: Marijuana Substance Use Comment - Amount & Last Used: "bath salts" Smoking Status (MU): Light Every Day Tobacco Smoker Type: Cigarettes Amount Used/How Often: 1/2 pack a day Review of Systems Positive: Chills Eyes: Negative ENT: Negative Cardiovascular: Negative Respiratory: Negative Positive: Abdominal Pain, Nausea. Negative: Vomiting, Diarrhea Genitourinary: Negative Negative: dysuria Positive: Myalgia Skin: Negative Positive: Headache. Negative: Weakness, Paresthesia, Numbness All Other Systems Reviewed And Are Negative: Yes Physical Exam Triage Information Reviewed: Yes Vital Signs On Initial Exam: Initial Vitals Temp Pulse Resp BP Pulse Ox 99.6 F 98 18 131/90 100 11/17/18 13:13 11/17/18 13:13 11/17/18 13:13 11/17/18 13:13 11/17/18 13:13 Vital Signs Reviewed: Yes Appearance: Positive: Well-Appearing - Pt. sitting up in bed in NAD. Skin: Positive: Warm, Dry Head/Face: Positive: Normal Head/Face Inspection Eyes: Positive: Normal, EOMI, DEANNA Neck: Positive: Supple - Full ROM without apparent pain.. Negative: Nuchal Rigidity Respiratory/Lung Sounds: Positive: Clear to Auscultation, Breath Sounds Present Cardiovascular: Positive: Normal, RRR Neurological: Positive: Normal, Alert, Oriented to Person Place, Time, CN Intact II-III Psychiatric: Positive: Affect/Mood Appropriate Diagnostics - Vital Signs Vital Signs Temp Pulse Resp BP Pulse Ox 11/17/18 15:04 98.9 F 96 19 124/87 98 11/17/18 13:13 99.6 F 98 18 131/90 100 - Laboratory Result Diagrams: 11/17/18 16:08 11/17/18 16:08 Lab Statement: Any lab studies that have been ordered have been reviewed, and results considered in the medical decision making process. Complex Multi-Symp Course/Dx Course Of Treatment: Pt. presenting with ongoing neck pain and diffuse myalgia/ chills since Rituximab infusion. She is afebrile with stable VS. Pt. in ED about a month ago for similar sxs. Neck MRI negative at that time. Pt. given IV fluids and toradol. Pt. has full ROM of neck without menigeal signs. Pt. also notes her neck pain is unchanged from her last ER visit one month ago prior to infusion. Labs and u/a unremarkable. On re-exam pt. is not feeling any better. 1741: Case discussed with Dr. Davis, neurology, who recommends consult with [place] neurologist. 1813: Case discuss with Dr. Moyer, neurologist, who has no further acute recommendations based on pt.'s presenting, labs and VS. He recommends close outpt. f.u. He suspects sxs are secondary to infusion. On re- exam pt. is resting comfortably. Consultation discussed. Nausea has improved and tolerating PO. Zofran rx. To call her neurologist tomorrow for close f.u apt. Will return to ER if sxs change or worsen. Pt. understands and agrees with plan. - Diagnoses Provider Diagnoses: Multiple sclerosis, Infusion reaction Discharge - Sign-Out/Discharge Documenting (check all that apply): Patient Departure Patient Received Moderate/Deep Sedation with Procedure: No - Discharge Plan Condition: Good Disposition: HOME Prescriptions: Ondansetron TAB* [Zofran 4 MG Tab*] 4 mg PO Q6H PRN #12 tab PRN Reason: Nausea Patient Education Materials: Multiple Sclerosis ([place]) Referrals: Mitul Davis MD [Medical Doctor] - Rodrigue Harden NP [Primary Care Provider] - Additional Instructions: Call your neurologist tomorrow morning for close follow up appointment Zofran as directed for nausea Increase fluids and rest Return to ER if symptoms change or worsen - Billing Disposition and Condition Condition: GOOD Disposition: Home - Attestation Statements Provider Attestation: I was available for consult. This patient was seen by the [facility]. The patient was not presented to, seen by, or examined by me. -Francisco
[2018-11-17 16:31] LABS: ABS Eosinophils 0.2 10^3/ul (0-0.6); ABS Lymphocytes 1.8 10^3/ul (1.0-4.8); ABS Monocytes 0.5 10^3/ul (0-0.8); ABS Neutrophils 6.9 10^3/ul (1.5-7.7); Eosinophil % 1.8 %; Hematocrit 42 % (35-47); Hemoglobin 14.7 g/dL (12.0-16.0); Lymphocyte % 19.6 %; Mean Corpuscular HGB Conc 35 g/dL (31-36); Mean Corpuscular Hemoglobin 28 pg (27-31); Mean Corpuscular Volume 82 fL (80-97); Mean Platelet Volume 7.8 fL (7.4-10.4); Nucleated Red Blood Cells % 0.1; Platelet Count 323 10^3/uL (150-450); Red Blood Count 5.15 10^6 /uL (3.70-4.87); Red Cell Distribution Width 16 % (10-15); White Blood Count 9.4 10^3/uL (3.5-10.8)
[2018-11-17 16:45] LABS: HCG Pregnancy < 0.60 mIU/mL
[2018-11-17 16:53] LABS: ALT 10 U/L (7-52); AST 11 U/L (13-39); Albumin 4.6 g/dL (3.2-5.2); Albumin/Globulin Ratio 1.6 (1-3); Alkaline Phosphatase 112 U/L (34-104); Anion Gap 10 mmol/L (2-11); BUN/Creatinine Ratio 12.3 (8-20); Blood Urea Nitrogen 9 mg/dL (6-24); CO2 Carbon Dioxide 25 mmol/L (22-32); Calcium 9.9 mg/dL (8.6-10.3); Chloride 104 mmol/L (101-111); EGFR African American 118.5 (>60); EGFR Non-African American 97.9 (>60); Globulin 2.9 g/dL (2-4); Glucose 95 mg/dL (70-100); Potassium 3.8 mmol/L (3.5-5.0); Sodium 139 mmol/L (135-145); Total Protein 7.5 g/dL (6.4-8.9)
[2018-11-17 17:46] LABS: Urine Appearance Clear; Urine Bilirubin Negative (Negative); Urine Blood Negative (Negative); Urine Color Yellow; Urine Glucose Negative (Negative); Urine Ketones Trace (Negative); Urine Nitrite Negative (Negative); Urine Protein Negative (Negative); Urine Urobilinogen Negative (Negative)
[2018-11-17 18:30] VITALS: BP 112/64
[2018-11-17 18:34] LABS: C Reactive Protein 3.98 mg/L (<8.01)
== END 2018-11-17 18:32 | disposition home or self-care (01) ==
LOC: ED 13:11
DX: G35 Multiple sclerosis (principal); T45.1X5A Adverse effect of antineoplastic and immunosuppressive drugs, initial encounter; R10.9 Unspecified abdominal pain; R11.0 Nausea; R68.83 Chills (without fever); F17.210 Nicotine dependence, cigarettes, uncomplicated; R51 Headache; Y92.9 Unspecified place or not applicable
CPT/HCPCS: 36415; 80053; 81003; 83735; 84702; 85025; 86140; 96361; 96374; 96375; 99282; J1885; J2405

== ENCOUNTER 2023-02-28 14:15 | Inpatient (IN) ==
[2023-02-28] MEDS ORDERED: LORazepam 2 mg VIAL 1 ml ONE (14:41)
[2023-02-28 16:07] LABS: Blood Urea Nitrogen 9 mg/dL (6-24); CO2 Carbon Dioxide 17 mmol/L (22-32); Calcium 9.7 mg/dL (8.6-10.3); Chloride 101 mmol/L (101-111); Creatinine, Serum 0.94 mg/dL (0.51-0.95); Glucose 170 mg/dL (70-100); Sodium 133 mmol/L (135-145); eGFR CKD-EPI 84.8 (>60)
[2023-02-28 16:08] LABS: ALT 23 U/L (7-52); Albumin 4.7 g/dL (3.2-5.2); Albumin/Globulin Ratio 1.7 (1-3); Alkaline Phosphatase 85 U/L (35-149); Globulin 2.8 g/dL (2-4); HCG Pregnancy < 0.60 mIU/mL; Total Protein 7.5 g/dL (6.4-8.9)
[2023-02-28 16:10] LABS: Anion Gap 15 mmol/L (2-16)
[2023-02-28 16:19] LABS: ABS Lymphocytes 1.9 10^3/uL (1.0-4.8); ABS Monocytes 0.6 10^3/uL (0.0-0.9); ABS Neutrophils 11.3 10^3/uL (1.5-7.6); ABS Nucleated RBC 0.02 10^3/ul; Eosinophil % 0.1 %; Hematocrit 38.7 % (35-45); Hemoglobin 13.5 g/dL (11.5-14.3); Lymphocyte % 13.5 %; Mean Corpuscular Hemoglobin 29.6 pg (27-33); Mean Corpuscular Hgb Conc 34.9 g/dL (31-36); Mean Corpuscular Volume 84.9 fL (80-97); Mean Platelet Volume 7.3 fL (7.5-11.2); Nucleated Red Blood Cells % 0.1 %/100WBC (0.0-0.8); Platelet Count 298 10^3/uL (150-450); Red Blood Count 4.56 10^6/uL (3.63-4.92); Red Cell Distribution Width 13.5 % (12-17); White Blood Count 13.8 10^3/uL (3.8-11.8)
[2023-02-28 16:23] LABS: Urine Appearance Clear; Urine Bilirubin Negative (Negative); Urine Blood Negative (Negative); Urine Color Straw; Urine Glucose Negative (Negative); Urine Ketones Negative (Negative); Urine Nitrite Negative (Negative); Urine Protein Negative (Negative); Urine Specific Gravity 1.004 (1.002-1.030); Urine Urobilinogen Negative (Negative)
[2023-02-28 16:43] LABS: Urine Benzodiazepine Screen None Detected (None Detect); Urine Cannabinoids Screen Presumptive Positive (None Detect); Urine Opiates Screen None Detected (None Detect)
[2023-02-28] MEDS ORDERED: Al Hydrox/Mg Hydrox/Simet LIQ 30 ML UDC PO PRN (18:43)
[2023-02-28] MEDS: ZONISAMIDE 100 MG PO SCH (21:08)
[2023-02-28 21:38] LABS: Potassium Redraw 3.3 mmol/L (3.5-5.0)
[2023-02-28 21:40] LABS: Acetaminophen < 15 mcg/mL; Alcohol, S < 13 mg/dL (<13); Salicylate < 2.50 mg/dL (<30)
[2023-02-28 21:50] LABS: TSH Ultra Thyroid Stim Horm 1.32 mcIU/mL (0.34-5.60)
[2023-03-01] MEDS: Vitamin THERAPEUTIC TAB PO SCH (09:22)
[2023-03-01 11:04] VITALS: BP 113/61
[2023-03-01] MEDS: ZONISAMIDE 100 MG PO SCH (21:36)
[2023-03-02 08:24] LABS: HDL Cholesterol 59.7 mg/dL
[2023-03-02 10:19] LABS: Albumin 4.8 g/dL (3.2-5.2); Albumin/Globulin Ratio 1.7 (1-3); Calcium 9.9 mg/dL (8.6-10.3); Creatinine, Serum 0.77 mg/dL (0.51-0.95); Globulin 2.8 g/dL (2-4); Potassium 3.7 mmol/L (3.5-5.0); Total Bilirubin 1.4 mg/dL (0.2-1.0); Total Protein 7.6 g/dL (6.4-8.9); eGFR CKD-EPI 107.7 (>60)
[2023-03-02] MEDS: Vitamin THERAPEUTIC TAB PO SCH (15:52)
[2023-03-02] MEDS: ZONISAMIDE 100 MG PO SCH (19:56)
[2023-03-03] MEDS: Vitamin THERAPEUTIC TAB PO SCH (07:35)
== END 2023-03-03 14:14 | disposition home or self-care (01) | DRG 753 ==
LOC: ED 14:15 → EDHOLD 18:04 → BSU 20:33
PROVIDERS: ADMIT Psychiatry & Neurology Addiction Psychiatry; ATTEND Psychiatry & Neurology Addiction Psychiatry

== ENCOUNTER 2023-08-27 17:59 | Observation (INO) ==
[2023-08-27 18:53] LABS: ABS Eosinophils 0.2 10^3/uL (0.0-0.5); ABS Lymphocytes 2.3 10^3/uL (1.0-4.8); ABS Monocytes 0.4 10^3/uL (0.0-0.9); ABS Neutrophils 5.5 10^3/uL (1.5-7.6); ABS Nucleated RBC 0.01 10^3/ul; Eosinophil % 2.4 %; Hematocrit 43.6 % (35-45); Hemoglobin 15.3 g/dL (11.5-14.3); Lymphocyte % 26.9 %; Mean Corpuscular Hgb Conc 35.1 g/dL (31-36); Mean Corpuscular Volume 85.5 fL (80-97); Mean Platelet Volume 7.4 fL (7.5-11.2); Nucleated Red Blood Cells % 0.1 %/100WBC (0.0-0.8); Platelet Count 272 10^3/uL (150-450); Red Cell Distribution Width 13.3 % (12-17); White Blood Count 8.4 10^3/uL (3.8-11.8)
[2023-08-27 18:59] LABS: Urine Appearance Turbid; Urine Bilirubin Negative (Negative); Urine Blood Negative (Negative); Urine Color Yellow; Urine Glucose Negative (Negative); Urine Ketones 1+ (Negative); Urine Nitrite Negative (Negative); Urine Protein 1+ (>=30 mg/dL) (Negative); Urine Specific Gravity 1.021 (1.002-1.030); Urine Urobilinogen 1+ (Negative)
[2023-08-27 19:18] LABS: Budding Yeast Present /HPF (Absent); Urine Amorphous Crystals Present /HPF (Absent); Urine Bacteria Absent /HPF (Absent); Urine Red Blood Cell Absent /HPF (0-Trace); Urine Squamous Epithelial Cell Present /HPF (Absent); Urine White Blood Cell Trace(0-5/hpf) /HPF (0-Trace)
[2023-08-27 19:20] LABS: Urine Benzodiazepine Screen None Detected (None Detect); Urine Cannabinoids Screen Presumptive Positive (None Detect); Urine Opiates Screen None Detected (None Detect)
[2023-08-27 19:28] LABS: INR 1.05 (0.83-1.13)
[2023-08-27 19:35] LABS: Alcohol, S < 13 mg/dL (<13)
[2023-08-27 19:36] LABS: ALT 10 U/L (7-52); AST 11 U/L (13-39); Albumin 4.6 g/dL (3.2-5.2); Alkaline Phosphatase 86 U/L (35-149); Anion Gap 8 mmol/L (2-16); Blood Urea Nitrogen 9 mg/dL (6-24); CO2 Carbon Dioxide 28 mmol/L (22-32); Calcium 9.8 mg/dL (8.6-10.3); Chloride 107 mmol/L (101-111); Creatinine, Serum 0.82 mg/dL (0.51-0.95); Globulin 2.3 g/dL (2-4); Glucose 84 mg/dL (70-100); Magnesium 2.4 mg/dL (1.9-2.7); Potassium 3.7 mmol/L (3.5-5.0); Sodium 143 mmol/L (135-145); Total Bilirubin 0.7 mg/dL (0.2-1.0); Total Protein 6.9 g/dL (6.4-8.9); eGFR CKD-EPI 99.2 (>60)
[2023-08-27 19:42] LABS: HCG Pregnancy < 0.60 mIU/mL
[2023-08-27 19:55] LABS: Prolactin 2.9 ng/mL (1.0-25.0)
[2023-08-27] MEDS: Midazolam 2 mg/2 ml VIAL 1 mg/ml 2 ml VIAL (2 mg) IV SLOW PU ONE (21:22)
[2023-08-27] MEDS: Lactated Ringers 1000 ml BAG 1,000 ML IV ONE (21:45)
[2023-08-28 04:00] VITALS: BP 91/54
[2023-08-28 05:09] LABS: ABS Eosinophils 0.3 10^3/uL (0.0-0.5); ABS Lymphocytes 2.5 10^3/uL (1.0-4.8); ABS Monocytes 0.3 10^3/uL (0.0-0.9); ABS Neutrophils 2.7 10^3/uL (1.5-7.6); ABS Nucleated RBC 0.01 10^3/ul; Eosinophil % 4.6 %; Hematocrit 42.4 % (35-45); Hemoglobin 14.5 g/dL (11.5-14.3); Mean Corpuscular Hemoglobin 29.4 pg (27-33); Mean Corpuscular Hgb Conc 34.2 g/dL (31-36); Mean Corpuscular Volume 85.9 fL (80-97); Mean Platelet Volume 7.5 fL (7.5-11.2); Nucleated Red Blood Cells % 0.2 %/100WBC (0.0-0.8); Platelet Count 240 10^3/uL (150-450); Red Blood Count 4.94 10^6/uL (3.63-4.92); Red Cell Distribution Width 13.7 % (12-17); White Blood Count 5.8 10^3/uL (3.8-11.8)
[2023-08-28] MEDS ORDERED: diazePAM INJ CARPUJECT 5 MG/ML SYRINGE IV PRN (05:29)
[2023-08-28 05:55] LABS: Albumin 4.1 g/dL (3.2-5.2); Albumin/Globulin Ratio 2.1 (1-3); Calcium 8.9 mg/dL (8.6-10.3); Creatinine, Serum 0.7 mg/dL (0.51-0.95); Magnesium 2.2 mg/dL (1.9-2.7); Potassium 3.8 mmol/L (3.5-5.0); Total Bilirubin 0.9 mg/dL (0.2-1.0); Total Protein 6.1 g/dL (6.4-8.9)
[2023-08-28 10:53] LABS: Vitamin D Total 25(OH) 12.5 ng/mL (20-50)
== END 2023-08-28 11:51 | disposition home or self-care (01) ==
LOC: ED 17:59 → EDHOLD 23:04 → INTOOBSV 23:04 → EDHOLD 08-28 11:50
PROVIDERS: ADMIT Internal Medicine Pulmonary Disease; ATTEND Internal Medicine Pulmonary Disease

== ENCOUNTER 2023-09-30 20:35 | Observation (INO) ==
[2023-09-30] MEDS: Ondansetron 4 mg VIAL 2 MG/ML 2 ml VIAL IV ONE (21:20)
[2023-09-30] MEDS ORDERED: Zonisamide 100 mg CAP (NF) PO ONE (22:09)
[2023-09-30] MEDS ORDERED: LORazepam 2 mg VIAL 1 ml ONE (22:39)
[2023-09-30] MEDS ORDERED: Lorazepam PYXIS KEY PRN (22:41)
[2023-09-30] MEDS: levETIRAcetam 1000MG IVPREMIX 1,000 MG/100 ML BAG IVPB SCH (22:46)
[2023-09-30] MEDS: LORazepam 2 mg VIAL 1 ml IV PUSH ONE (22:46)
[2023-09-30] MEDS: Lactated Ringers 1000 ml BAG 1,000 ML IV ONE (23:57)
[2023-10-01] MEDS: Zonisamide 100 mg CAP (NF) PO ONE (00:09)
[2023-10-01 00:16] LABS: ABS Lymphocytes 1.1 10^3/uL (1.0-4.8); ABS Monocytes 0.3 10^3/uL (0.0-0.9); ABS Nucleated RBC 0.01 10^3/ul; Hematocrit 39.5 % (35-45); Hemoglobin 13.6 g/dL (11.5-14.3); Lymphocyte % 6.8 %; Mean Corpuscular Hemoglobin 29.7 pg (27-33); Mean Corpuscular Hgb Conc 34.4 g/dL (31-36); Mean Corpuscular Volume 86.2 fL (80-97); Mean Platelet Volume 7.6 fL (7.5-11.2); Platelet Count 322 10^3/uL (150-450); Red Blood Count 4.58 10^6/uL (3.63-4.92); Red Cell Distribution Width 14.1 % (12-17); White Blood Count 15.4 10^3/uL (3.8-11.8)
[2023-10-01 01:01] LABS: Albumin 4.6 g/dL (3.2-5.2); Albumin/Globulin Ratio 1.9 (1-3); Calcium 9.5 mg/dL (8.6-10.3); Creatinine, Serum 0.81 mg/dL (0.51-0.95); Globulin 2.4 g/dL (2-4); Magnesium 2.1 mg/dL (1.9-2.7); Phosphorus 2.9 mg/dL (2.5-5.0); Total Bilirubin 0.7 mg/dL (0.2-1.0); eGFR CKD-EPI 100.7 (>60)
[2023-10-01 01:19] LABS: Prolactin 19.9 ng/mL (1.0-25.0)
[2023-10-01] MEDS ORDERED: Ondansetron 4 mg VIAL 2 MG/ML 2 ml VIAL IV PRN (01:45)
[2023-10-01 05:09] LABS: ABS Lymphocytes 2.1 10^3/uL (1.0-4.8); ABS Monocytes 0.5 10^3/uL (0.0-0.9); ABS Neutrophils 8.9 10^3/uL (1.5-7.6); ABS Nucleated RBC 0.01 10^3/ul; Eosinophil % 0.2 %; Hematocrit 35.4 % (35-45); Hemoglobin 12.3 g/dL (11.5-14.3); Lymphocyte % 18.4 %; Mean Corpuscular Hgb Conc 34.8 g/dL (31-36); Mean Corpuscular Volume 86.1 fL (80-97); Mean Platelet Volume 7.7 fL (7.5-11.2); Nucleated Red Blood Cells % 0.1 %/100WBC (0.0-0.8); Platelet Count 312 10^3/uL (150-450); Red Blood Count 4.12 10^6/uL (3.63-4.92); Red Cell Distribution Width 13.6 % (12-17); White Blood Count 11.6 10^3/uL (3.8-11.8)
[2023-10-01 05:43] LABS: Creatinine, Serum 0.72 mg/dL (0.51-0.95); Potassium 3.7 mmol/L (3.5-5.0)
[2023-10-01 14:09] VITALS: BP 106/67
[2023-10-01 14:48] LABS: Urine Appearance Clear; Urine Bilirubin Negative (Negative); Urine Blood Negative (Negative); Urine Color Light-Yellow; Urine Glucose Negative (Negative); Urine Ketones Negative (Negative); Urine Nitrite Negative (Negative); Urine Protein Negative (Negative); Urine Specific Gravity 1.013 (1.002-1.030); Urine Urobilinogen Negative (Negative); Urine pH 6.5 (5.0-8.0)
[2023-10-01 14:58] LABS: Urine Amorphous Crystals Present /HPF (Absent); Urine Bacteria 1+ /HPF (Absent); Urine Red Blood Cell Trace(0-2/hpf) /HPF (0-Trace); Urine Squamous Epithelial Cell Present /HPF (Absent); Urine White Blood Cell 1+(6-10/hpf) /HPF (0-Trace)
[2023-10-01 15:15] LABS: Urine Benzodiazepine Screen None Detected (None Detect); Urine Cannabinoids Screen Presumptive Positive (None Detect); Urine Opiates Screen None Detected (None Detect)
[2023-10-01 18:12] LABS: Urine Buprenorphine Screen None Detected (None Detect); Urine Fentanyl Screen None Detected (None Detect); Urine Hydrocodone Screen None Detected (None Detect)
[2023-10-01] MEDS ORDERED: CMCS:Zonisamide 100 mg CAP (NF) PO SCH (21:00)
[2023-10-02] MEDS ORDERED: Zonisamide 100 mg CAP (NF) PO SCH (09:00)
[2023-10-02 14:24] LABS: Levetiracetam 30.4 mcg/mL
== END 2023-10-01 17:00 | disposition home or self-care (01) ==
LOC: EDHOLD 20:35 → ED 20:35 → SUATTDRO 10-01 01:45 → MED 10-01 03:25
PROVIDERS: ADMIT Internal Medicine; ATTEND Internal Medicine

== ENCOUNTER 2023-10-14 21:21 | Observation (INO) ==
[2023-10-14] MEDS ORDERED: Midazolam 5 mg/ml concentrated 5 mg/ml 1 ml VIAL ONE ×2 (22:14→22:18)
[2023-10-14] MEDS: Midazolam 5 mg/ml concentrated 5 mg/ml 1 ml VIAL INJ ONE (22:15)
[2023-10-14] MEDS: Midazolam 5 mg/5 ml VIAL 1 mg/ml 5 ml VIAL (5 mg) IV SLOW PU ONE (22:17)
[2023-10-14 22:43] LABS: ABS Eosinophils 0.1 10^3/uL (0.0-0.5); ABS Lymphocytes 2.6 10^3/uL (1.0-4.8); ABS Monocytes 0.6 10^3/uL (0.0-0.9); ABS Neutrophils 9.7 10^3/uL (1.5-7.6); ABS Nucleated RBC 0.01 10^3/ul; Eosinophil % 1.1 %; Hemoglobin 13.3 g/dL (11.5-14.3); Lymphocyte % 19.9 %; Mean Corpuscular Hemoglobin 30.1 pg (27-33); Mean Corpuscular Volume 88.5 fL (80-97); Mean Platelet Volume 7.8 fL (7.5-11.2); Nucleated Red Blood Cells % 0.1 %/100WBC (0.0-0.8); Platelet Count 312 10^3/uL (150-450); Red Blood Count 4.41 10^6/uL (3.63-4.92); Red Cell Distribution Width 13.9 % (12-17)
[2023-10-14] MEDS: levETIRAcetam 1000MG IVPREMIX 1,000 MG/100 ML BAG IVPB ONE (22:56)
[2023-10-14 23:23] LABS: Albumin 4.5 g/dL (3.2-5.2); Albumin/Globulin Ratio 1.9 (1-3); Calcium 9.2 mg/dL (8.6-10.3); Creatinine, Serum 0.98 mg/dL (0.51-0.95); Globulin 2.4 g/dL (2-4); Potassium 3.5 mmol/L (3.5-5.0); Total Bilirubin 0.5 mg/dL (0.2-1.0); Total Protein 6.9 g/dL (6.4-8.9); eGFR CKD-EPI 80.1 (>60)
[2023-10-14] MEDS ORDERED: Senna TAB 8.6 mg TAB PO PRN (23:55)
[2023-10-14] MEDS ORDERED: Polyethylene Glycol 3350 17 GM PACKET PO PRN (23:55)
[2023-10-15 00:02] LABS: Urine Benzodiazepine Screen Presumptive Positive (None Detect); Urine Cannabinoids Screen Presumptive Positive (None Detect); Urine Opiates Screen None Detected (None Detect)
[2023-10-15 02:21] LABS: Magnesium 1.8 mg/dL (1.9-2.7); Phosphorus 4.3 mg/dL (2.5-5.0)
[2023-10-15] MEDS ORDERED: LORazepam 2 mg VIAL 1 ml IV PUSH PRN (03:17)
[2023-10-15] MEDS ORDERED: Lorazepam PYXIS KEY PRN (03:17)
[2023-10-15] MEDS: Lactated Ringers 1000 ml BAG 1,000 ML IV ONE (03:23)
[2023-10-15 06:17] LABS: ABS Lymphocytes 1.5 10^3/uL (1.0-4.8); ABS Monocytes 0.5 10^3/uL (0.0-0.9); ABS Neutrophils 7.3 10^3/uL (1.5-7.6); Eosinophil % 0.2 %; Hematocrit 33.6 % (35-45); Hemoglobin 11.7 g/dL (11.5-14.3); Lymphocyte % 15.9 %; Mean Corpuscular Hemoglobin 30.2 pg (27-33); Mean Corpuscular Hgb Conc 34.9 g/dL (31-36); Mean Corpuscular Volume 86.7 fL (80-97); Mean Platelet Volume 7.7 fL (7.5-11.2); Platelet Count 263 10^3/uL (150-450); Red Blood Count 3.88 10^6/uL (3.63-4.92); Red Cell Distribution Width 14.1 % (12-17); White Blood Count 9.2 10^3/uL (3.8-11.8)
[2023-10-15 06:24] LABS: INR 1.1 (0.83-1.13)
[2023-10-15 06:47] LABS: Calcium 8.7 mg/dL (8.6-10.3); Creatinine, Serum 0.64 mg/dL (0.51-0.95); Magnesium 1.8 mg/dL (1.9-2.7); Phosphorus 4.2 mg/dL (2.5-5.0); Potassium 3.9 mmol/L (3.5-5.0); eGFR CKD-EPI 122.6 (>60)
[2023-10-15] MEDS ORDERED: levETIRAcetam 1000MG IVPREMIX 1,000 MG/100 ML BAG IVPB SCH ×2 (09:00→22:00)
[2023-10-15] MEDS: Magnesium Sulfate 2 gm BAG 2 GM/50 ML BAG IVPB ONE (09:51)
[2023-10-15] MEDS: CMCS:Zonisamide 100 mg CAP (NF) PO SCH (11:29)
[2023-10-15 14:11] VITALS: BP 97/52
== END 2023-10-15 16:35 | disposition home or self-care (01) ==
LOC: ED 21:21 → EDHOLD 21:21 → SUATTDRO 23:55 → MED 10-15 02:00
PROVIDERS: ADMIT Student in an Organized Health Care Education/Training Program; ATTEND Hospitalist

== ENCOUNTER 2023-10-18 21:04 | Inpatient (IN) ==
[2023-10-18] MEDS ORDERED: Lorazepam PYXIS KEY PRN (21:20)
[2023-10-18] MEDS: Midazolam 2 mg/2 ml VIAL 1 mg/ml 2 ml VIAL (2 mg) IM ONE (21:35)
[2023-10-18] MEDS: LORazepam 2 mg VIAL 1 ml IM ONE (21:36)
[2023-10-18] MEDS: LORazepam 2 MG/ML 1 mL Syringe IM ONE (22:01)
[2023-10-18] MEDS: Haloperidol 5 mg/ml SDV IV/IM 5 MG/ML AMP IM ONE (22:11)
[2023-10-18 22:51] LABS: ABS Basophils 0.1 10^3/uL (0.0-0.1); ABS Eosinophils 0.1 10^3/uL (0.0-0.5); ABS Lymphocytes 2.6 10^3/uL (1.0-4.8); ABS Neutrophils 10.8 10^3/uL (1.5-7.6); ABS Nucleated RBC 0.01 10^3/ul; Eosinophil % 0.4 %; Hematocrit 40.9 % (35-45); Hemoglobin 14.2 g/dL (11.5-14.3); Lymphocyte % 18.2 %; Mean Corpuscular Hemoglobin 29.5 pg (27-33); Mean Corpuscular Hgb Conc 34.7 g/dL (31-36); Mean Platelet Volume 7.6 fL (7.5-11.2); Nucleated Red Blood Cells % 0.1 %/100WBC (0.0-0.8); Platelet Count 360 10^3/uL (150-450); Red Blood Count 4.82 10^6/uL (3.63-4.92); Red Cell Distribution Width 13.6 % (12-17); White Blood Count 14.5 10^3/uL (3.8-11.8)
[2023-10-18 23:07] LABS: ALT 15 U/L (7-52); AST 30 U/L (13-39); Acetaminophen < 15 mcg/mL; Albumin 4.9 g/dL (3.2-5.2); Albumin/Globulin Ratio 1.8 (1-3); Alcohol, S < 13 mg/dL (<13); Alkaline Phosphatase 93 U/L (35-149); Anion Gap 16 mmol/L (2-16); Blood Urea Nitrogen 18 mg/dL (6-24); CO2 Carbon Dioxide 17 mmol/L (22-32); Calcium 9.9 mg/dL (8.6-10.3); Chloride 106 mmol/L (101-111); Creatinine, Serum 0.97 mg/dL (0.51-0.95); Globulin 2.7 g/dL (2-4); Glucose 98 mg/dL (70-100); Potassium 3.4 mmol/L (3.5-5.0); Salicylate < 2.50 mg/dL (<30); Sodium 139 mmol/L (135-145); Total Bilirubin 1.3 mg/dL (0.2-1.0); Total Protein 7.6 g/dL (6.4-8.9); eGFR CKD-EPI 81.1 (>60)
[2023-10-19 00:32] LABS: HCG Pregnancy < 0.60 mIU/mL
[2023-10-19 00:41] LABS: TSH Ultra Thyroid Stim Horm 6.24 mcIU/mL (0.34-5.60)
[2023-10-19 08:13] LABS: Urine Appearance Clear; Urine Bilirubin Negative (Negative); Urine Blood Negative (Negative); Urine Color Colorless; Urine Glucose Negative (Negative); Urine Ketones Negative (Negative); Urine Nitrite Negative (Negative); Urine Protein Negative (Negative); Urine Specific Gravity 1.004 (1.002-1.030); Urine Urobilinogen Negative (Negative); Urine pH 5.5 (5.0-8.0)
[2023-10-19 08:25] LABS: Urine Bacteria 1+ /HPF (Absent); Urine Red Blood Cell Trace(0-2/hpf) /HPF (0-Trace); Urine Squamous Epithelial Cell Present /HPF (Absent); Urine White Blood Cell Trace(0-5/hpf) /HPF (0-Trace)
[2023-10-19 08:35] LABS: Urine Benzodiazepine Screen Presumptive Positive (None Detect); Urine Cannabinoids Screen Presumptive Positive (None Detect); Urine Opiates Screen None Detected (None Detect)
[2023-10-19] MEDS ORDERED: Al Hydrox/Mg Hydrox/Simet LIQ 30 ML UDC PO PRN (09:01)
[2023-10-19] MEDS: CMCS: Zonisamide 100 mg CAP (NF) PO SCH (20:05)
[2023-10-20 08:33] LABS: HDL Cholesterol 50.6 mg/dL
[2023-10-20] MEDS ORDERED: Lorazepam PYXIS KEY PRN (15:13)
[2023-10-20] MEDS: LORazepam 2 MG/ML 1 mL Syringe IM ONE (15:50)
[2023-10-20 16:49] LABS: ABS Eosinophils 0.1 10^3/uL (0.0-0.5); ABS Lymphocytes 2.5 10^3/uL (1.0-4.8); ABS Monocytes 0.3 10^3/uL (0.0-0.9); ABS Nucleated RBC 0.01 10^3/ul; Hematocrit 38.2 % (35-45); Hemoglobin 13.2 g/dL (11.5-14.3); Lymphocyte % 35.3 %; Mean Corpuscular Hemoglobin 29.5 pg (27-33); Mean Corpuscular Hgb Conc 34.7 g/dL (31-36); Mean Corpuscular Volume 85.1 fL (80-97); Mean Platelet Volume 7.1 fL (7.5-11.2); Nucleated Red Blood Cells % 0.2 %/100WBC (0.0-0.8); Platelet Count 307 10^3/uL (150-450); Red Blood Count 4.48 10^6/uL (3.63-4.92); Red Cell Distribution Width 13.7 % (12-17)
[2023-10-20 17:56] LABS: Albumin 4.4 g/dL (3.2-5.2); Albumin/Globulin Ratio 1.8 (1-3); Calcium 9.6 mg/dL (8.6-10.3); Creatinine, Serum 0.79 mg/dL (0.51-0.95); Globulin 2.4 g/dL (2-4); Potassium 3.5 mmol/L (3.5-5.0); Total Bilirubin 0.9 mg/dL (0.2-1.0); Total Protein 6.8 g/dL (6.4-8.9); eGFR CKD-EPI 103.8 (>60)
[2023-11-02 08:00] VITALS: BP 113/71
== END 2023-11-02 08:49 | DRG 897 ==
LOC: ED 21:04 → EDHOLD 10-19 09:01 → BSU 10-19 09:16
PROVIDERS: ADMIT Psychiatry & Neurology Psychiatry; ATTEND Psychiatry & Neurology Psychiatry

== ENCOUNTER 2024-01-11 09:53 | Observation (INO) ==
[2024-01-11] MEDS ORDERED: LORazepam 2 mg VIAL 1 ml ONE (10:36)
[2024-01-11] MEDS ORDERED: Lorazepam PYXIS KEY PRN ×3 (10:36→10:59)
[2024-01-11] MEDS: LORazepam 2 mg VIAL 1 ml IM ONE (10:39)
[2024-01-11 10:47] LABS: ABS Basophils 0.1 10^3/uL (0.0-0.1); ABS Monocytes 0.5 10^3/uL (0.0-0.9); ABS Neutrophils 13.8 10^3/uL (1.5-7.6); ABS Nucleated RBC 0.01 10^3/ul; Eosinophil % 0.1 %; Hematocrit 40.6 % (35-45); Hemoglobin 13.6 g/dL (11.5-14.3); Mean Corpuscular Hemoglobin 28.6 pg (27-33); Mean Corpuscular Hgb Conc 33.5 g/dL (31-36); Mean Corpuscular Volume 85.2 fL (80-97); Mean Platelet Volume 7.4 fL (7.5-11.2); Platelet Count 459 10^3/uL (150-450); Red Blood Count 4.76 10^6/uL (3.63-4.92); Red Cell Distribution Width 13.7 % (12-17); White Blood Count 16.3 10^3/uL (3.8-11.8)
[2024-01-11] MEDS: LORazepam 2 mg VIAL 1 ml IV PUSH ONE ×2 (10:51→11:08)
[2024-01-11] MEDS: Lactated Ringers 1000 ml BAG 1,000 ML IV ONE ×2 (10:54→17:39)
[2024-01-11] MEDS: levETIRAcetam 1000MG IVPREMIX 1,000 MG/100 ML BAG IVPB ONE (11:05)
[2024-01-11 11:07] LABS: INR 1.1 (0.85-1.14)
[2024-01-11 11:12] LABS: ALT 13 U/L (7-52); Albumin 4.6 g/dL (3.2-5.2); Albumin/Globulin Ratio 1.6 (1-3); Alkaline Phosphatase 120 U/L (35-149); Anion Gap 12 mmol/L (2-16); Blood Urea Nitrogen 10 mg/dL (6-24); C Reactive Protein 27.47 mg/L (<8.01); CO2 Carbon Dioxide 21 mmol/L (22-32); Calcium 9.4 mg/dL (8.6-10.3); Chloride 105 mmol/L (101-111); Creatinine, Serum 0.72 mg/dL (0.51-0.95); Globulin 2.9 g/dL (2-4); Glucose 102 mg/dL (70-100); Sodium 138 mmol/L (135-145); Total Bilirubin 0.5 mg/dL (0.2-1.0); Total Protein 7.5 g/dL (6.4-8.9)
[2024-01-11 11:17] LABS: HCG Pregnancy < 0.60 mIU/mL
[2024-01-11 13:55] LABS: Urine Appearance Turbid; Urine Bilirubin Negative (Negative); Urine Blood Negative (Negative); Urine Color Light-Yellow; Urine Glucose Negative (Negative); Urine Ketones Negative (Negative); Urine Nitrite Negative (Negative); Urine Protein Trace (Negative); Urine Urobilinogen Negative (Negative); Urine pH 7.5 (5.0-8.0)
[2024-01-11 14:48] LABS: Urine Benzodiazepine Screen None Detected (None Detect); Urine Cannabinoids Screen Presumptive Positive (None Detect); Urine Opiates Screen None Detected (None Detect)
[2024-01-11 19:41] LABS: Magnesium 1.6 mg/dL (1.9-2.7)
[2024-01-11] MEDS: Magnesium Sulfate 2 gm BAG 2 GM/50 ML BAG IVPB ONE (20:45)
[2024-01-11] MEDS: Enoxaparin 40 MG/0.4 ML SYR SUBCUT SCH (20:45)
[2024-01-11 21:18] LABS: Potassium Redraw 3.8 mmol/L (3.5-5.0)
[2024-01-11] MEDS: Magnesium Sulfate IV 1GM/100ML 1 GM/100 ML BAG IV ONE (21:35)
[2024-01-11] MEDS: Zonisamide 100 mg CAP (NF) PO SCH (23:45)
[2024-01-12 06:27] LABS: ABS Eosinophils 0.1 10^3/uL (0.0-0.5); ABS Lymphocytes 2.9 10^3/uL (1.0-4.8); ABS Monocytes 0.4 10^3/uL (0.0-0.9); Eosinophil % 2.1 %; Hematocrit 31.2 % (35-45); Hemoglobin 10.7 g/dL (11.5-14.3); Lymphocyte % 45.4 %; Mean Corpuscular Hemoglobin 28.7 pg (27-33); Mean Corpuscular Hgb Conc 34.3 g/dL (31-36); Mean Corpuscular Volume 83.7 fL (80-97); Mean Platelet Volume 7.1 fL (7.5-11.2); Platelet Count 335 10^3/uL (150-450); Red Blood Count 3.72 10^6/uL (3.63-4.92); Red Cell Distribution Width 13.5 % (12-17); White Blood Count 6.5 10^3/uL (3.8-11.8)
[2024-01-12 07:02] LABS: Albumin 3.5 g/dL (3.2-5.2); Albumin/Globulin Ratio 1.8 (1-3); Calcium 8.2 mg/dL (8.6-10.3); Creatinine, Serum 0.62 mg/dL (0.51-0.95); Globulin 1.9 g/dL (2-4); Magnesium 2.4 mg/dL (1.9-2.7); Potassium 3.3 mmol/L (3.5-5.0); Total Bilirubin 0.5 mg/dL (0.2-1.0); Total Protein 5.4 g/dL (6.4-8.9); eGFR CKD-EPI 123.5 (>60)
[2024-01-12] MEDS: levETIRAcetam 1000MG IVPREMIX 1,000 MG/100 ML BAG IVPB SCH (09:16)
[2024-01-12] MEDS: Potassium Chloride LIQUID 20 MEQ/15 ML LIQUID PO ONE (13:56)
[2024-01-12 14:30] VITALS: BP 119/58
== END 2024-01-12 18:15 | disposition home or self-care (01) ==
LOC: ED 09:53 → EDHOLD 09:53 → MEDTELE 15:34
PROVIDERS: ADMIT Student in an Organized Health Care Education/Training Program; ATTEND Student in an Organized Health Care Education/Training Program